=== PATIENT | female | born 1935 | race Caucasian/White ===

== ENCOUNTER → 2017-04-19 | Outpatient (CLI) | payer MEDICARE, BC ==
[~2017-04-19] MED LIST: SODIUM CHLORIDE 0.9% 250 ML in EMPTY BAG 1 BAG IV PRN; SODIUM CHLORIDE 0.9% 500 ML in EMPTY BAG 1 BAG IV PRN; ZOLEDRONIC ACID 5 MG in SODIUM CHLORIDE 0.9% 100 ML IV ONE
[2017-04-19 09:23] VITALS: BP 120/67; PULSE 80; RESP 20; TEMP 98.8
== END | disposition home or self-care (01) ==
LOC: PROCWHC3 08:45
PROVIDERS: ATTEND Family Medicine
DX: M81.0 Age-related osteoporosis without current pathological fracture (principal)
CPT/HCPCS: 96365; J3489

== ENCOUNTER 2017-04-25 21:30 | Inpatient (IN) | payer MEDICARE, BC ==
[2017-04-25] MEDS ORDERED: SODIUM CHLORIDE 0.9% 1,000 ML IV STA (22:13)
[2017-04-25] MEDS ORDERED: ACETAMINOPHEN TAB 500 MG TAB PO STA (22:13)
[2017-04-25] MEDS ORDERED: SODIUM CHLORIDE 0.9% 500 ML IV STA ×2 (22:13→22:58)
[2017-04-25 22:27] LABS: Basophils % (A) 0 %; CH 32.1; CHCM 34.9; Eosinophils # (A) 0.1 k/uL (0-0.7); Eosinophils % (A) 1 %; HCT 43.4 % (34.0-46.0); HDW 2.74; Luc # (Auto) 0.02; Luc % (Auto) 0; Lymphocytes # (A) 0.6 k/uL (1.0-4.8); Lymphocytes % (A) 7 %; MCH 31.8 pg (25.0-35.0); MCHC 34.5 g/dL (31.0-37.0); MCV 92.3 fL (80.0-100.0); Mean Platelet Volume 6.5; Monocytes # (A) 0.2 k/uL (0-1.0); Monocytes % (A) 2 %; Neutrophils # (A) 7.8 k/uL (1.3-7.7); Neutrophils % (A) 89 %; RDW 12.8 % (11.5-15.5); WBC 8.7 k/uL (3.8-10.6); WBC (Perox) 9.04
[2017-04-25 22:35] LABS: Calcium 11.1 mg/dL (8.4-10.2); Potassium 4.6 mmol/L (3.5-5.1); Total Bilirubin 0.8 mg/dL (0.2-1.3); Total Protein 7.1 g/dL (6.3-8.2)
[2017-04-25 22:40] LABS: VBG PH 7.35 (7.31-7.41)
--- NOTE | 2017-04-25 23:09 | XR ---
EXAM: XR Chest, 2 Views. CLINICAL HISTORY: Reason: Pneumonia TECHNIQUE: Frontal and lateral views of the chest. COMPARISON: 11/12/15 FINDINGS: Lungs: Unremarkable. No consolidation. Pleural spaces: Unremarkable. No pneumothorax. Heart: Unremarkable. No cardiomegaly. Mediastinum: Unremarkable. Bones: Unremarkable. No acute fracture. IMPRESSION: No acute findings in the chest
--- NOTE | 2017-04-25 23:11 | XR ---
EXAM: XR Left Hip With Pelvis When Performed, 2 or 3 Views. CLINICAL HISTORY: Reason: Pain TECHNIQUE: Two or three views of the left hip, with pelvis when performed. COMPARISON: No relevant prior studies available. FINDINGS: Bones: Unremarkable. No acute fracture. Joints: Unremarkable. No dislocation. Soft tissues: Unremarkable. IMPRESSION: No acute radiographic findings in the left hip. If there is clinical concern for radiographically occult fracture, this can be further evaluated with MRI.
[2017-04-25 23:32] LABS: Appearance,Urine Cloudy (Clear); Bilirubin,Urine Negative (Negative); Glucose,Urine (UA) 1+ (Negative); Ketones,Urine Trace (Negative); Leukocyte Esterase,Urine Negative (Negative); Mucus,Urine Rare /hpf; Nitrite,Urine Negative (Negative); Particle Count 10607; Protein,Urine 1+ (Negative); RBC,Urine 4 /hpf (0-5); Specific Gravity,Urine 1.011 (1.001-1.035); Squamous Epithelial Cell,Urine 1 /hpf (0-4); UA Billing (MACRO vs. MICRO) MICRO; Urobilinogen,Urine <2.0 mg/dL (<2.0); WBC,Urine 28 /hpf (0-5)
[2017-04-26] MEDS ORDERED: ONDANSETRON 4 MG/2 ML VIAL IVP PRN (00:05)
[2017-04-26] MEDS ORDERED: ACETAMINOPHEN TAB 325 MG TAB PO PRN (00:05)
[2017-04-26] MEDS ORDERED: IBUPROFEN 400 MG TAB PO PRN (00:05)
[2017-04-26] MEDS ORDERED: NALOXONE 0.4 MG/ML 1 ML VIAL IV PRN (00:05)
--- NOTE | 2017-04-26 00:05 | ED ---
Fever HPI - General Chief Complaint: Fever Stated Complaint: Nausea Time Seen by Provider: 04/25/17 22:03 Source: patient Mode of arrival: wheelchair Limitations: no limitations - History of Present Illness Initial Comments: All of a sudden she was not feeling well she called her daughter daughternoticed mom was sweating profusely and now she had high fever, they noticed that she had she was shaking and a she had right worse area she denies any headache no sore throat no chest pain no cough no abdominal pain no frequency urgency dysuria no symptoms of TIA or CVA - Related Data Home Medications Medication Instructions Recorded Confirmed Antiarthritic Combination No.2 900 mg PO DAILY 04/03/15 04/16/16 [Glucosamine-Chondroitin] Aspirin 81 mg PO DAILY 04/03/15 04/19/17 Atorvastatin [Lipitor] 40 mg PO DAILY 04/03/15 04/19/17 Calcium Carbonate/Vitamin D3 1 each PO BID 04/03/15 04/19/17 [Calcium 600 + Vit D Tablet] Gabapentin [Neurontin] 100 mg PO QID 04/03/15 04/19/17 Levothyroxine Sodium [Synthroid] 100 mcg PO DAILY 04/03/15 04/19/17 Lisinopril-Hctz 20-12.5 mg 20 mg PO DAILY 04/03/15 04/19/17 [Zestoretic 20-12.5] Metoprolol Succinate [Toprol XL] 25 mg PO BID 04/03/15 04/19/17 Multivitamin 1 tab PO DAILY 04/03/15 04/19/17 Semprex 1 tab PO BID 04/03/15 04/19/17 metFORMIN HCL [Glucophage] 500 mg PO DAILY 04/03/15 04/19/17 Glucosam/Brian-Msm1/C/Richie/Bosw 1 each PO BID 04/19/17 04/19/17 [Glucosamine-Chondroitin Tablet] Lactobacillus Acidophilus 1 each PO DAILY 04/19/17 04/19/17 [Acidophilus] Allergies Allergy/AdvReac Type Severity Reaction Status Date / Time codeine Allergy Unknown Verified 04/25/17 21:41 Review of Systems ROS Statement: Those systems with pertinent positive or pertinent negative responses have been documented in the HPI. ROS Other: All systems not noted in ROS Statement are negative. Past Medical History Past Medical History: Coronary Artery Disease (CAD), Diabetes Mellitus, Hyperlipidemia, Hypertension, Myocardial Infarction ([place]), Osteoarthritis (OA), Thyroid Disorder Additional Past Medical History / Comment(s): heart stent 01/04/13 head injur jan 01 2015 was inpt in trauma center Last Myocardial Infarction Date:: 01 01 15 History of Any Multi-Drug Resistant Organisms: None Reported Past Surgical History: Heart Catheterization With Stent, Tonsillectomy, Tubal Ligation Additional Past Surgical History / Comment(s): cataracts Date of Last Stent Placement:: 01/04/13 Past Psychological History: No Psychological Hx Reported Smoking Status: Never smoker Past Alcohol Use History: None Reported Past Drug Use History: None Reported - Past Family History Daughter(s) Family Medical History: Cancer Additional Family Medical History / Comment(s): breast cancer General Exam - General Exam Comments Initial Comments: General: The patient is awake and alert, is distressed she is profusely diaphoretic and looks dehydrated Skin: Skin is warm and dry and no rashes or lesions are noted. Eye: Pupils are equal, round and reactive to light, extra-ocular movements are intact; there is normal conjunctiva bilaterally. Ears, nose, mouth and throat: There are moist mucous membranes and no oral lesions. Neck: The neck is supple, there is no tenderness, no signs of meningeal irritation Cardiovascular: There is a regular rate and rhythm. No murmur, rub or gallop is appreciated. Respiratory: To auscultation bilateral, no wheezing no rhonchi no distress respiratory romero noticed Gastrointestinal: Soft, non-distended, non-tender abdomen without masses or organomegaly noted. There is no rebound or guarding present. Bowel sounds are unremarkable. Back: There is no tenderness to palpation in the midline. There is no obvious deformity. Musculoskeletal: Normal ROM, no tenderness, There is no pedal edema. There is no calf tenderness or swelling. No cords were appreciated. Neurological: CN II-XII intact, Cranial nerves III through XII are intact. There are no obvious motor or sensory deficits. Coordination appears grossly intact. Speech is normal. Psychiatric: Cooperative, appropriate mood & affect, normal judgment. Limitations: no limitations Course Vital Signs 04/25/17 04/25/17 04/25/17 21:37 21:56 23:05 Temperature 102.1 F H 98.2 F Pulse Rate 104 H 80 75 Respiratory 24 18 18 Rate Blood Pressure 147/77 127/55 135/60 O2 Sat by Pulse 97 96 97 Oximetry 04/25/17 04/25/17 23:33 23:51 Temperature 98.4 F 98.1 F Pulse Rate 70 62 Respiratory 16 16 Rate Blood Pressure 113/56 113/56 O2 Sat by Pulse 96 99 Oximetry Medical Decision Making - Lab Data Result diagrams: 04/25/17 22:00 04/25/17 22:00 Lab Results 04/25/17 04/25/17 04/25/17 Range/Units 22:00 22:00 22:00 WBC 8.7 (3.8-10.6) k/uL RBC 4.70 (3.80-5.40) m/uL Hgb 15.0 (11.4-16.0) gm/dL Hct 43.4 (34.0-46.0) % MCV 92.3 (80.0-100.0) fL MCH 31.8 (25.0-35.0) pg MCHC 34.5 (31.0-37.0) g/dL RDW 12.8 (11.5-15.5) % Plt Count 232 (150-450) k/uL Neutrophils % 89 % Lymphocytes % 7 % Monocytes % 2 % Eosinophils % 1 % Basophils % 0 % Neutrophils # 7.8 H (1.3-7.7) k/uL Lymphocytes # 0.6 L (1.0-4.8) k/uL Monocytes # 0.2 (0-1.0) k/uL Eosinophils # 0.1 (0-0.7) k/uL Basophils # 0.0 (0-0.2) k/uL VBG pH (7.31-7.41) VBG pCO2 (37-51) mmHg VBG HCO3 (24-28) mmol/L Sodium 144 (137-145) mmol/L Potassium 4.6 (3.5-5.1) mmol/L Chloride 104 (98-107) mmol/L Carbon Dioxide 24 (22-30) mmol/L Anion Gap 16 mmol/L BUN 20 H (7-17) mg/dL Creatinine 1.40 H (0.52-1.04) mg/dL Est GFR (MDRD) Af Amer 44 (>60 ml/min/1.73 sqM) Est GFR (MDRD) Non-Af 36 (>60 ml/min/1.73 sqM) Glucose 157 H (74-99) mg/dL Plasma Lactic Acid Niranjan 3.7 H* (0.7-2.0) mmol/L Calcium 11.1 H (8.4-10.2) mg/dL Total Bilirubin 0.8 (0.2-1.3) mg/dL AST 62 H (14-36) U/L ALT 55 H (9-52) U/L Alkaline Phosphatase 112 (38-126) U/L Total Protein 7.1 (6.3-8.2) g/dL Albumin 4.5 (3.5-5.0) g/dL Urine Color Urine Appearance (Clear) Urine pH (5.0-8.0) Ur Specific Motley (1.001-1.035) Urine Protein (Negative) Urine Glucose (UA) (Negative) Urine Ketones (Negative) Urine Blood (Negative) Urine Nitrite (Negative) Urine Bilirubin (Negative) Urine Urobilinogen (<2.0) mg/dL Ur Leukocyte Esterase (Negative) Urine RBC (0-5) /hpf Urine WBC (0-5) /hpf Urine WBC Clumps (None) /hpf Ur Squamous Epith Cells (0-4) /hpf Urine Mucus (None) /hpf 04/25/17 04/25/17 Range/Units 22:30 23:00 WBC (3.8-10.6) k/uL RBC (3.80-5.40) m/uL Hgb (11.4-16.0) gm/dL Hct (34.0-46.0) % MCV (80.0-100.0) fL MCH (25.0-35.0) pg MCHC (31.0-37.0) g/dL RDW (11.5-15.5) % Plt Count (150-450) k/uL Neutrophils % % Lymphocytes % % Monocytes % % Eosinophils % % Basophils % % Neutrophils # (1.3-7.7) k/uL Lymphocytes # (1.0-4.8) k/uL Monocytes # (0-1.0) k/uL Eosinophils # (0-0.7) k/uL Basophils # (0-0.2) k/uL VBG pH 7.35 (7.31-7.41) VBG pCO2 47 (37-51) mmHg VBG HCO3 25 (24-28) mmol/L Sodium (137-145) mmol/L Potassium (3.5-5.1) mmol/L Chloride (98-107) mmol/L Carbon Dioxide (22-30) mmol/L Anion Gap mmol/L BUN (7-17) mg/dL Creatinine (0.52-1.04) mg/dL Est GFR (MDRD) Af Amer (>60 ml/min/1.73 sqM) Est GFR (MDRD) Non-Af (>60 ml/min/1.73 sqM) Glucose (74-99) mg/dL Plasma Lactic Acid Niranjan (0.7-2.0) mmol/L Calcium (8.4-10.2) mg/dL Total Bilirubin (0.2-1.3) mg/dL AST (14-36) U/L ALT (9-52) U/L Alkaline Phosphatase (38-126) U/L Total Protein (6.3-8.2) g/dL Albumin (3.5-5.0) g/dL Urine Color Yellow Urine Appearance Cloudy H (Clear) Urine pH 6.0 (5.0-8.0) Ur Specific Motley 1.011 (1.001-1.035) Urine Protein 1+ H (Negative) Urine Glucose (UA) 1+ H (Negative) Urine Ketones Trace H (Negative) Urine Blood Negative (Negative) Urine Nitrite Negative (Negative) Urine Bilirubin Negative (Negative) Urine Urobilinogen <2.0 (<2.0) mg/dL Ur Leukocyte Esterase Negative (Negative) Urine RBC 4 (0-5) /hpf Urine WBC 28 H (0-5) /hpf Urine WBC Clumps Few H (None) /hpf Ur Squamous Epith Cells 1 (0-4) /hpf Urine Mucus Rare H (None) /hpf Critical Care Time Total Critical Care Time: 30 Critical Care Time: And very diaphoretic, she was very dehydrated, she can talk her tongue was stuck in her mouth and she had a high fever she was given a fluid bolus in the Zosyn, labs sent though didn't look as bad as she did CBC is normal, BS metabolic panel is normal, creatinine is 1.4 date is 3.4 and urinalysis positive this is probably the most common cause of her sepsis since her chest x- ray is normal considering a lactate of 3.4 and clinical picture which looked worse than her labs and imaging she be admitted for IV antibiotics and cultures come back she be admitted under Dr. Sue service Disposition Clinical Impression: Sepsis, Fever, Cystitis Disposition: ADMITTED IP TO THIS HOSP Condition: Good Referrals: Juan Farrell MD [Primary Care Provider] - 1-2 days
[2017-04-26 07:24] LABS: Glucose,Whole Blood 118 mg/dL (75-99)
[2017-04-26] MEDS: INSULIN LISPRO (humaLOG) 300 UNIT/3 ML VIAL SQ SCH ×4 (07:36→20:47)
[2017-04-26] MEDS ORDERED: PIPERACILLIN-TAZOBACTAM 3.375 GM in DEXTROSE/WATER 1 50ML.BAG IVPB SCH (08:00)
[2017-04-26] MEDS: METOPROLOL TARTRATE 25 MG TAB PO SCH ×2 (08:02→20:40)
[2017-04-26] MEDS: LACTOBACILLUS ACIDOPH & BULGAR 1 EACH PACKET PO SCH (08:02)
[2017-04-26] MEDS: ATORVASTATIN 40 MG TAB PO SCH (08:02)
[2017-04-26] MEDS: MULTIVITAMINS, THERA 1 EACH TAB PO SCH (08:02)
[2017-04-26] MEDS: GABAPENTIN 100 MG CAP PO SCH ×4 (08:02→21:44)
[2017-04-26] MEDS: CALCIUM CARB-VIT D 500MG-200UN 1 EACH TAB PO SCH ×2 (08:03→20:40)
[2017-04-26] MEDS ORDERED: LEVOTHYROXINE 100 MCG TAB PO SCH (09:00)
[2017-04-26] MEDS ORDERED: LISINOPRIL-HCTZ 20-12.5 MG 1 EACH TAB PO SCH (09:00)
[2017-04-26] MEDS ORDERED: NON-FORMULARY DRUG (Glucosam/Chon-Msm1/C/Mang/Bosw [Glucosamine-Chondroitin Tablet] 1 EACH PO SCH (09:00)
[2017-04-26] MEDS ORDERED: ANTIARTHRITIC COMBINATION NO 2 900 MG PO SCH (09:00)
[2017-04-26] MEDS ORDERED: metFORMIN 500 MG TAB PO SCH (09:00)
[2017-04-26] MEDS: ASPIRIN 81 MG CHEW PO SCH (09:30)
[2017-04-26 11:50] LABS: Glucose,Whole Blood 116 mg/dL (75-99)
[2017-04-26 16:57] LABS: Glucose,Whole Blood 100 mg/dL (75-99)
[2017-04-26 20:49] LABS: Glucose,Whole Blood 129 mg/dL (75-99)
[2017-04-27] MEDS: LEVOTHYROXINE 100 MCG TAB PO SCH (06:41)
[2017-04-27 06:55] LABS: Glucose,Whole Blood 93 mg/dL (75-99)
[2017-04-27] MEDS: INSULIN LISPRO (humaLOG) 300 UNIT/3 ML VIAL SQ SCH ×4 (07:03→21:25)
[2017-04-27] MEDS: LACTOBACILLUS ACIDOPH & BULGAR 1 EACH PACKET PO SCH (07:39)
[2017-04-27] MEDS: ASPIRIN 81 MG CHEW PO SCH (07:40)
[2017-04-27] MEDS: CALCIUM CARB-VIT D 500MG-200UN 1 EACH TAB PO SCH ×2 (07:40→21:25)
[2017-04-27] MEDS: MULTIVITAMINS, THERA 1 EACH TAB PO SCH (07:40)
[2017-04-27] MEDS: ATORVASTATIN 40 MG TAB PO SCH (07:40)
[2017-04-27] MEDS: METOPROLOL TARTRATE 25 MG TAB PO SCH ×2 (07:40→21:25)
[2017-04-27] MEDS: GABAPENTIN 100 MG CAP PO SCH ×4 (07:40→21:25)
--- NOTE | 2017-04-27 08:15 | HP ---
DATE OF ADMISSION: Patient is an 81-year-old female who was brought in here because of the fever. Patient was having chills at home and found to have high-grade fever here. Patient denied any myalgias. The patient denies any cough, runny nose, dysuria, frequency, urgency. Patient although urine appeared to be abnormal and urine cultures are so far negative. Blood cultures were obtain. Chest x-ray did not show any abnormality. Patient had lactic acidosis as well which improved with IV fluids. Patient's urine showed WBC of 28, WBC clumps, nitrate negative. Home medications include: Glucosamine chondroitin sulfate, aspirin, atorvastatin, calcium, vitamin D, gabapentin, levothyroxine, lisinopril, hydrochlorothiazide, metoprolol, ( ), metformin, lactobacillus acidophilus. ROS: All other systems were reviewed and were negative. ALLERGIES: ALLERGIC TO CODEINE. PAST MEDICAL HISTORY: Coronary artery disease, diabetes mellitus type 2, hyperlipidemia, hypertension, myocardial infarction in the past, hypothyroidism. Cardiac catheterization and stent placement in the past, tonsillectomy, tubal ligation surgery. SOCIAL HISTORY: Denied any smoking, alcohol abuse or any drug abuse. FAMILY HISTORY: Daughter with breast cancer. PHYSICAL EXAMINATION: Temperature 98.5, 24-hour T-max is 102.1, pulse of 104, pulse presently 72, respiratory rate of 16, blood pressure is 112/54, saturating at 98% on room air. GENERAL: The patient is alert and oriented x3, not in any acute distress. Well developed, well nourished. HEENT: Pupils are round and equally reacting to light. EOMI. No scleral icterus. No conjunctival pallor. Normocephalic, atraumatic. No pharyngeal erythema. No thyromegaly. CARDIOVASCULAR: S1 and S2 present. No murmurs, rubs, or gallops. PULMONARY: Chest is clear to auscultation, no wheezing or crackles. ABDOMEN: Soft, nontender, nondistended, normoactive bowel sounds. No palpable organomegaly. MUSCULOSKELETAL: No joint swelling or deformity. EXTREMITIES: No cyanosis, clubbing, or pedal edema. NEUROLOGICAL: Gross neurological examination did not reveal any focal deficits. SKIN: No rashes. LABORATORY DATA: CBC and CMP abnormal for normal WBC count and creatinine is 1.4, BUN of 20. I do not have her baseline creatinine. ASSESSMENT AND PLAN: 1. Fever, source of sepsis is not very clear. Urinary tract infection cannot be ruled out. Patient will be continued on Rocephin. Will follow with the urine cultures tomorrow. Patient probably will be discharged tomorrow. 2. Lactic acidosis; can be related to sepsis or maybe even just secondary to metformin she is on. Metformin will be held. Patient will be started on IV fluids. 3. Acute versus chronic kidney disease. I am not sure whether patient has CKD or not. BUN and creatinine is consistent with CKD and may have stage II or III. Diabetic nephropathy and stage II or III chronic kidney disease. Anyways the patient will be started on IV fluids. PJ inhibitor will be held at this time until I make sure it is not acute renal failure. Patient is actually on hypotensive side. 4. Coronary artery disease. 5. Hyperlipidemia. 6. Hypertension. We will hold off on lisinopril hydrochlorothiazide. 7. Hypothyroidism for which home medications will be continued. 8. Diabetic neuropathy. MTDD
[2017-04-27 08:58] LABS: Anion Gap 8 mmol/L; Blood Urea Nitrogen 13 mg/dL (7-17); Calcium 9.7 mg/dL (8.4-10.2); Carbon Dioxide 26 mmol/L (22-30); Chloride 108 mmol/L (98-107); Glucose 106 mg/dL (74-99); Non-African American GFR(MDRD) 59 (>60 ml/min/1.73 sqM); Potassium 3.7 mmol/L (3.5-5.1); Sodium 142 mmol/L (137-145)
[2017-04-27 09:35] LABS: CH 31.8; CHCM 33.6; HCT 38.6 % (34.0-46.0); HDW 2.65; HGB 12.8 gm/dL (11.4-16.0); MCH 31.6 pg (25.0-35.0); MCHC 33.2 g/dL (31.0-37.0); MCV 95.2 fL (80.0-100.0); Mean Platelet Volume 6.9; RBC 4.06 m/uL (3.80-5.40); RDW 13.2 % (11.5-15.5); WBC 8.2 k/uL (3.8-10.6)
[2017-04-27 11:49] LABS: Glucose,Whole Blood 116 mg/dL (75-99)
[2017-04-27 16:57] LABS: Glucose,Whole Blood 120 mg/dL (75-99)
[2017-04-27] MEDS: AMPICILLIN-SULBACTAM 3 GM in SODIUM CHLORIDE 0.9% 100 ML IVPB SCH ×2 (17:03→23:46)
--- NOTE | 2017-04-27 20:37 | PN ---
This 81-year-old was admitted with sepsis. Patient is found to be bacteremic with Gram-positive cocci in chains. To cover enterococcus, I will order Unasyn, as most probable source of infection is urinary tract infection. Patient is feeling much better; wanted to go home, but because of the positive bacteremia, will repeat blood cultures today and tomorrow as well. REVIEW OF SYSTEMS: CARDIOVASCULAR: No chest pain, no orthopnea, no PND, no palpitations. PULMONARY: Denied any shortness of breath. No cough or hemoptysis. GASTROINTESTINAL: No diarrhea, nausea or vomiting. No abdominal pain. Normoactive bowel sounds. NEUROLOGIC: No headaches, no weakness, no numbness. Medications were reviewed. PHYSICAL EXAMINATION: VITAL SIGNS: Temperature 97.5, pulse of 72, respiratory rate 16, blood pressure 140/70. Saturating at 96% on room air. GENERAL: The patient is alert and oriented x3, not in any acute distress. Well developed, well nourished. HEENT: Pupils are round and equally reacting to light. EOMI. No scleral icterus. No conjunctival pallor. Normocephalic, atraumatic. No pharyngeal erythema. No thyromegaly. CARDIOVASCULAR: S1 and S2 present. No murmurs, rubs, or gallops. PULMONARY: Chest is clear to auscultation, no wheezing or crackles. ABDOMEN: Soft, nontender, nondistended, normoactive bowel sounds. No palpable organomegaly. MUSCULOSKELETAL: No joint swelling or deformity. EXTREMITIES: No cyanosis, clubbing, or pedal edema. NEUROLOGICAL: Gross neurological examination did not reveal any focal deficits. SKIN: No rashes. LABORATORY DATA: Basic metabolic profile and CBC are essentially within normal limits. ASSESSMENT AND PLAN: 1. Fever and bacteremia with Gram-positive cocci in chains. Patient will be continued on Unasyn. Repeat labs tomorrow. 2. Lactic acidosis, either secondary to metformin or sepsis or bacteremia. 3. Acute renal failure, improved with IV fluids and discontinuation of PJ inhibitors and hydrochlorothiazide. 4. Coronary artery disease. 5. Hyperlipidemia. 6. Hypertension. 7. Hypothyroidism. 8. Diabetic neuropathy.
[2017-04-27 20:43] LABS: Glucose,Whole Blood 107 mg/dL (75-99)
[2017-04-28] MEDS: AMPICILLIN-SULBACTAM 3 GM in SODIUM CHLORIDE 0.9% 100 ML IVPB SCH ×2 (06:12→12:27)
[2017-04-28] MEDS: LEVOTHYROXINE 100 MCG TAB PO SCH (06:26)
[2017-04-28 07:37] LABS: Glucose,Whole Blood 95 mg/dL (75-99)
[2017-04-28 08:11] VITALS: BP 141/76; PULSE 66; TEMP 97.4
[2017-04-28] MEDS: INSULIN LISPRO (humaLOG) 300 UNIT/3 ML VIAL SQ SCH ×2 (08:15→12:23)
[2017-04-28] MEDS: MULTIVITAMINS, THERA 1 EACH TAB PO SCH (08:55)
[2017-04-28] MEDS: ASPIRIN 81 MG CHEW PO SCH (08:55)
[2017-04-28] MEDS: LACTOBACILLUS ACIDOPH & BULGAR 1 EACH PACKET PO SCH (08:55)
[2017-04-28] MEDS: ATORVASTATIN 40 MG TAB PO SCH (08:55)
[2017-04-28] MEDS: GABAPENTIN 100 MG CAP PO SCH ×2 (08:55→12:27)
[2017-04-28] MEDS: CALCIUM CARB-VIT D 500MG-200UN 1 EACH TAB PO SCH (08:55)
[2017-04-28] MEDS: METOPROLOL TARTRATE 25 MG TAB PO SCH (08:55)
[2017-04-28 09:55] VITALS: RESP 18
[2017-04-28 11:57] LABS: Glucose,Whole Blood 116 mg/dL (75-99)
--- NOTE | 2017-04-30 09:23 | DS ---
DATE OF ADMISSION: 04/26/2017 DATE OF DISCHARGE: 04/28/2017 FINAL DIAGNOSES: 1. Probably acute urinary tract infection with sepsis, present on admission. 2. Lactic acidosis from sepsis. 3. Acute renal failure, probably prerenal, present on admission. 4. Coronary artery disease. 5. Hyperlipidemia. 6. Essential hypertension. 7. Hypothyroidism. HOSPITAL COURSE: This patient presented with UTI with possible sepsis, growing nonhemolytic strep. Patient was febrile 102.1 on presentation and remained afebrile since then, doing really well, tolerating a diet. Up and about, Very keen to go home. Patient's white count was normal. Patient is up and about. Really felt himself. On exam, lungs are clear. CARDIOVASCULAR: First and second sounds normal. DISCHARGE MEDICATIONS: Medication glucosamine/chondroitin 900 mg p.o. daily, Aspirin 81 mg p.o. daily, Lipitor 40 mg p.o. daily, calcium and vitamin D3 1 tablet p.o. b.i.d., Neurontin 100 mg p.o. q.i.d., Synthroid 100 mcg p.o. daily, ( ) 1 tablet p.o. b.i.d., glucosamine chondroitin 1 tablet p.o. b.i.d., ( ) 1 tablet p.o. daily, Lopressor 25 mg p.o. b.i.d., Multivitamin 1 tablet p.o. daily, Augmentin 875 one tablet p.o. q.12 14 tablets, Lopressor 25 mg p.o. b.i.d. Follow up with Dr. Farrell on 05/06/17. CBC, BMP in one week.
== END 2017-04-28 13:39 | disposition home or self-care (01) | DRG 872 ==
LOC: EC 21:30 → 4MS4W 04-26 00:07
PROVIDERS: ADMIT Hospitalist; ATTEND Hospitalist
DX: A40.8 Other streptococcal sepsis (principal); N17.9 Acute kidney failure, unspecified; E87.2 Acidosis; E11.21 Type 2 diabetes mellitus with diabetic nephropathy; N39.0 Urinary tract infection, site not specified; E11.40 Type 2 diabetes mellitus with diabetic neuropathy, unspecified; E03.9 Hypothyroidism, unspecified; E11.22 Type 2 diabetes mellitus with diabetic chronic kidney disease; E78.5 Hyperlipidemia, unspecified; I12.9 Hypertensive chronic kidney disease with stage 1 through stage 4 chronic kidney disease, or unspecified chronic kidney disease; I25.10 Atherosclerotic heart disease of native coronary artery without angina pectoris; I25.2 Old myocardial infarction; N18.2 Chronic kidney disease, stage 2 (mild); Z95.5 Presence of coronary angioplasty implant and graft; Z79.82 Long term (current) use of aspirin; Z79.899 Other long term (current) drug therapy; Z88.5 Allergy status to narcotic agent
CPT/HCPCS: 36415; 71020; 73502; 80048; 80053; 81001; 82803; 83036; 83605; 85025; 85027; 87040; 87077; 87086; 87186; 94760; 96361; 96365; 96366; 99285

== ENCOUNTER → 2017-06-28 | Outpatient (CLI) | payer MEDICARE, BC ==
--- NOTE | 2017-06-29 10:05 | MM ---
Reason for exam: screening (asymptomatic). Last mammogram was performed 7 years and 3 months ago. History: Patient is postmenopausal. Physical Findings: A clinical breast exam by your physician is recommended on an annual basis and results should be correlated with mammographic findings. MG 3D Screening Mammo W/Cad Bilateral CC and MLO view(s) were taken. Prior study comparison: April 03, 2010, bilateral digital screening mammogram. There are scattered fibroglandular densities. Finding: There are typically benign vascular, round, linear calcifications in both breasts. Previous mammotome biopsy in the left breast. There is no discrete abnormality. ASSESSMENT: Benign, BI-RAD 2 RECOMMENDATION: Routine screening mammogram of both breasts in 1 year.
== END | disposition home or self-care (01) ==
LOC: RADMAMWWP 10:38
PROVIDERS: ATTEND Family Medicine
DX: Z12.31 Encounter for screening mammogram for malignant neoplasm of breast (principal)
CPT/HCPCS: 77063; G0202

== ENCOUNTER 2018-01-15 18:22 | Observation (INO) | payer MEDICARE, BC ==
[2018-01-15] MEDS ORDERED: MORPHINE SULFATE 4 MG/ML SYRINGE IVP STA (19:01)
[2018-01-15] MEDS ORDERED: SODIUM CHLORIDE 0.9% 1,000 ML IV STA (19:01)
[2018-01-15] MEDS: MORPHINE SULFATE 4 MG/ML SYRINGE IV STA ×2 (19:10→20:02)
[2018-01-15 19:28] LABS: Basophils # (A) 0.1 k/uL (0-0.2); Basophils % (A) 0 %; Eosinophils # (A) 0.2 k/uL (0-0.7); Eosinophils % (A) 1 %; HGB 14.1 gm/dL (11.4-16.0); Lymphocytes # (A) 1.6 k/uL (1.0-4.8); Lymphocytes % (A) 11 %; MCH 31.3 pg (25.0-35.0); MCHC 32.8 g/dL (31.0-37.0); MCV 95.4 fL (80.0-100.0); Mean Platelet Volume 6.7; Monocytes # (A) 0.9 k/uL (0-1.0); Monocytes % (A) 6 %; Neutrophils % (A) 81 %; Platelet Count 257 k/uL (150-450); RBC 4.51 m/uL (3.80-5.40); RDW 12.6 % (11.5-15.5); WBC 14.8 k/uL (3.8-10.6)
--- NOTE | 2018-01-15 19:38 | ED ---
Chest Pain HPI - General Chief Complaint: Chest Pain Stated Complaint: chest pain radiating to back Time Seen by Provider: 01/15/18 18:56 Source: patient Mode of arrival: wheelchair Limitations: no limitations - History of Present Illness Initial Comments: 82 years old female presented with the chest pain she does have a history of heart disease she had a stent in place in 2012 she has been seeing a finisher map and chart every 3 months, chest pain started 3 PM today him and now she is complaining about pain in the epigastric area denies any nausea no vomiting no diaphoresis no shortness of breath no pleuritic chest pain. No headaches no neck stiffness no symptoms of TIA or CVA - Related Data Home Medications Medication Instructions Recorded Confirmed Aspirin 81 mg PO MOWEFR 04/03/15 01/15/18 Atorvastatin [Lipitor] 40 mg PO DAILY 04/03/15 01/15/18 Calcium Carbonate/Vitamin D3 1 tab PO BID 04/03/15 01/15/18 [Calcium 600-Vit D3 400 Tablet] Gabapentin [Neurontin] 100 mg PO BID@0800,1500 04/03/15 01/15/18 Levothyroxine Sodium [Synthroid] 100 mcg PO MOTUWETHFRSA 04/03/15 01/15/18 Semprex 1 tab PO BID 04/03/15 01/15/18 Lactobacillus Acidophilus 1 tab PO DAILY 04/19/17 01/15/18 [Acidophilus] Multivitamins, Thera [Multivitamin 1 tab PO DAILY 04/26/17 01/15/18 (formulary)] Cyanocobalamin (Vitamin B-12) 1,000 mcg PO DAILY 01/15/18 01/15/18 [Vitamin B-12] Gabapentin [Neurontin] 200 mg PO HS 01/15/18 01/15/18 Glucosam/Brian-Msm1/C/Richie/Bosw 1 tab PO BID 01/15/18 01/15/18 [Glucosamine-Chondroitin Tablet] Lisinopril [Zestril] 20 mg PO DAILY 01/15/18 01/15/18 Naproxen Sodium [Aleve] 220 mg PO DAILY 01/15/18 01/15/18 metFORMIN HCL ER [Glucophage Xr] 500 mg PO PC-SUPPER 01/15/18 01/15/18 Previous Rx's Medication Instructions Recorded Metoprolol Tartrate [Lopressor] 25 mg PO BID tab 04/28/17 Allergies Allergy/AdvReac Type Severity Reaction Status Date / Time codeine Allergy Unknown Verified 01/15/18 19:03 Review of Systems ROS Statement: Those systems with pertinent positive or pertinent negative responses have been documented in the HPI. ROS Other: All systems not noted in ROS Statement are negative. EKG Findings - EKG Comments: EKG Findings:: EKG is normal sinus rhythm ventricular rate is 62 GA interval is 158 QRS duration is 84 QT/QTc is 406/415 review of this EKG does not reveal any ST elevation noticed very mild ST depression in lead 2 and V6 Past Medical History Past Medical History: Coronary Artery Disease (CAD), Diabetes Mellitus, Hyperlipidemia, Hypertension, Myocardial Infarction ([place]), Osteoarthritis (OA), Thyroid Disorder Additional Past Medical History / Comment(s): heart stent 01/04/13 head injur jan 01 2015 was inpt in trauma center in [place] Last Myocardial Infarction Date:: 01-01-15 History of Any Multi-Drug Resistant Organisms: None Reported Past Surgical History: Bowel Resection, Heart Catheterization With Stent, Tonsillectomy, Tubal Ligation Additional Past Surgical History / Comment(s): cataracts Past Anesthesia/Blood Transfusion Reactions: No Reported Reaction Date of Last Stent Placement:: 01/04/13 Past Psychological History: No Psychological Hx Reported Smoking Status: Never smoker Past Alcohol Use History: None Reported Past Drug Use History: None Reported - Past Family History Daughter(s) Family Medical History: Cancer Additional Family Medical History / Comment(s): breast cancer General Exam - General Exam Comments Initial Comments: General: The patient is awake and alert, in severe distress, Skin: Skin is warm and dry and no rashes or lesions are noted. Eye: Pupils are equal, round and reactive to light, extra-ocular movements are intact; there is normal conjunctiva bilaterally. Ears, nose, mouth and throat: There are moist mucous membranes and no oral lesions. Neck: The neck is supple, there is no tenderness or JVD. Cardiovascular: There is a regular rate and rhythm. No murmur, rub or gallop is appreciated. Respiratory: To auscultation bilateral, no wheezing no rhonchi no distress respiratory romero noticed Gastrointestinal: Mildly tender in epigastric area positive bowel sounds no guarding no rebounds Back: There is no tenderness to palpation in the midline. There is no obvious deformity. Musculoskeletal: Normal ROM, no tenderness, There is no pedal edema. There is no calf tenderness or swelling. No cords were appreciated. Neurological: CN II-XII intact, Cranial nerves III through XII are intact. There are no obvious motor or sensory deficits. Coordination appears grossly intact. Speech is normal. Psychiatric: Cooperative, appropriate mood & affect, normal judgment. Limitations: no limitations Course Vital Signs 01/15/18 01/15/18 01/15/18 18:25 19:00 19:29 Temperature 97 F L 98.4 F Pulse Rate 60 62 Pulse Rate [ 68 Bilateral Computer Engineer ] Respiratory 16 18 Rate Blood Pressure 170/71 132/60 O2 Sat by Pulse 99 97 Oximetry 01/15/18 01/15/18 01/15/18 19:45 20:00 21:00 Temperature 98 F Pulse Rate 62 62 82 Pulse Rate [ Bilateral Computer Engineer ] Respiratory 18 20 18 Rate Blood Pressure 134/60 146/67 146/67 O2 Sat by Pulse 97 98 97 Oximetry Critical Care Time Total Critical Care Time: 45 Critical Care Time: She came in with a chest pain on arrival chest pain has subsided she had abdominal pain she was given some morphine without great deal of benefit at 823 pain got worse though second EKG didn't show any changes on repeat the troponin and a she be sent for a CT chest to rule out aortic dissection CT chest is unremarkable for pulmonary embolism or aortic dissection EKG and troponin are still unremarkable with a recurrent heparinize her The hospital for 3 sets of cardiac markers and cardiology consult Disposition Clinical Impression: Chest pain Disposition: ADMITTED IP TO THIS HOSP Condition: Good Referrals: Juan Farrell MD [Primary Care Provider] - 1-2 days
[2018-01-15 19:41] LABS: Prothrombin Time 9.8 sec (9.0-12.0)
[2018-01-15 19:43] LABS: ALT 28 U/L (9-52); AST 29 U/L (14-36); Albumin 3.9 g/dL (3.5-5.0); Alkaline Phosphatase 75 U/L (38-126); Amylase 122 U/L (30-110); Anion Gap 11 mmol/L; Blood Urea Nitrogen 15 mg/dL (7-17); Calcium 9.7 mg/dL (8.4-10.2); Carbon Dioxide 28 mmol/L (22-30); Chloride 102 mmol/L (98-107); Creatine Kinase 116 U/L (30-135); Glucose 151 mg/dL (74-99); Lipase 288 U/L (23-300); Potassium 3.7 mmol/L (3.5-5.1); Sodium 141 mmol/L (137-145); Total Bilirubin 0.4 mg/dL (0.2-1.3); Total Protein 6.4 g/dL (6.3-8.2)
[2018-01-15 19:47] LABS: Partial Thromboplastin Time 22.1 sec (22.0-30.0)
[2018-01-15 19:55] LABS: Troponin I <0.012 ng/mL (0.000-0.034)
[2018-01-15 20:00] LABS: Creatine Kinase MB 3.7 ng/mL (0.0-2.4)
--- NOTE | 2018-01-15 20:06 | XR ---
EXAMINATION TYPE: XR KUB DATE OF EXAM: 01/15/2018 CLINICAL DATA: 82-year-old female with pain, [facility] COMPARISON: 08/07/2011 FINDINGS: Lung bases are clear. No evidence for free intraperitoneal air. No dilated small bowel or air-fluid levels. Scattered air and stool seen throughout the colon extendi ng distally into the rectum. Mild to moderate stool. Splenic artery calcifications and some surgical clips in the mid pelvis. Degenerative changes of the pubic symphysis and right hip and lumbar spine with levoconvex curvature. IMPRESSION: No evidence of bowel obstruction or free intraperitoneal air. Mild to moderate stool. Some surgical c lips in the mid pelvis.
--- NOTE | 2018-01-15 20:07 | XR ---
EXAMINATION TYPE: XR chest 2V DATE OF EXAM: 01/15/2018 COMPARISON: 04/25/2017 HISTORY: 82-year-old female with chest pain TECHNIQUE: PA and lateral views FINDINGS: Heart borderline enlarged. Mild elongation thoracic aorta. Prominent first rib ends are noted. Mild i nterstitial prominence. No consolidation or pleural effusion. IMPRESSION: 1. Borderline heart size. 2. Chronic senescent changes. No acute process seen.
[2018-01-15] MEDS ORDERED: RX INFO: IV CONTRAST WAS GIVEN 1 EACH MISC MISCELLANE PRN (20:21)
[2018-01-15] MEDS ORDERED: HYDROmorphone 2 MG/ML 1 ML SYRINGE IVP STA (20:21)
[2018-01-15] MEDS ORDERED: HYDROmorphone 0.5 MG/0.5 ML SYRINGE IVP STA (20:25)
[2018-01-15 20:36] LABS: C Reactive Protein <5.0 mg/L (<10.0)
--- NOTE | 2018-01-15 21:16 | CT ---
EXAMINATION TYPE: CT chest angio for PE DATE OF EXAM: 01/15/2018 COMPARISON: Radiograph same day HISTORY: 82-year-old female chest and back pain TECHNIQUE: Contiguous axial scanning of the chest performed with IV Contrast, patient injected with 7 0 mL of Omnipaque 350. Delayed images through the kidneys were obtained. Coronal/sagittal reconstruct ions performed. CT DLP: 212.00 mGycm Automated exposure control for dose reduction was used. FINDINGS: The heart is borderline enlarged. No pericardial effusion. Mild coronary vessel calcifications. Aorta normal caliber with conventional arterial vessel branching anatomy. There is some tortuosity of the great vessels. No thoracic lymphadenopathy. Satisfactory opacification of the pulmonary arterial system without evidence for pulmonary embolus. Mild diffuse bronchial wall thickening. Dependent atelectasis is noted. Strandy atelectasis or scarri ng at the lung bases. No consolidation or pleural effusion. Visualized upper abdomen shows no gross abnormality. Bones: Endplate spondylosis upper thoracic spine. No osseous destructive process. IMPRESSION: 1. NO EVIDENCE FOR PULMONARY EMBOLUS. 2. MILD DIFFUSE BRONCHIAL WALL THICKENING COULD REPRESENT BRONCHITIS OR ASTHMA. 3. DEPENDENT ATELECTASIS AND STRANDY BIBASILAR ATELECTASIS OR SCARRING.
[2018-01-15] MEDS ORDERED: NITROGLYCERIN SL TABS 0.4 MG TAB SUBLINGUAL PRN (21:59)
[2018-01-15] MEDS ORDERED: HEPARIN SODIUM,PORCINE 5,000 UNIT/ML 1 ML VIAL IV ONE (21:59)
[2018-01-15] MEDS ORDERED: MORPHINE SULFATE 4 MG/ML SYRINGE IV PRN (21:59)
[2018-01-15] MEDS ORDERED: HEPARIN SOD,PORK IN 0.45% NACL 25,000 UNIT in 0.45% NACL 1 500ML.BAG IV SCH (22:00)
[2018-01-16 01:49] VITALS: BMI 23.3
[2018-01-16 02:36] LABS: Creatine Kinase 78 U/L (30-135)
[2018-01-16 02:49] LABS: Troponin I <0.012 ng/mL (0.000-0.034)
[2018-01-16 04:23] LABS: Cholesterol 103 mg/dL (<200); HDL Cholesterol 81 mg/dL (40-60); LDL Cholesterol,Calculated 17 mg/dL (0-99); Triglycerides 25 mg/dL (<150)
[2018-01-16 06:31] LABS: Glucose,Whole Blood 174 mg/dL (75-99)
[2018-01-16] MEDS ORDERED: metFORMIN 500 MG TAB PO SCH (07:30)
[2018-01-16 07:46] LABS: Creatine Kinase 61 U/L (30-135)
[2018-01-16 07:59] LABS: Creatine Kinase MB 2.4 ng/mL (0.0-2.4); Troponin I <0.012 ng/mL (0.000-0.034)
[2018-01-16] MEDS ORDERED: GABAPENTIN 100 MG CAP PO SCH ×2 (08:00→21:00)
[2018-01-16 08:57] VITALS: RESP 17; TEMP 97.6
[2018-01-16] MEDS ORDERED: CYANOCOBALAMIN 500 MCG TAB PO SCH (09:00)
[2018-01-16] MEDS ORDERED: CALCIUM CARB-VIT D 500MG-200UN 1 EACH TAB PO SCH (09:00)
[2018-01-16] MEDS ORDERED: LACTOBACILLUS ACIDOPH & BULGAR 1 EACH PACKET PO SCH (09:00)
[2018-01-16] MEDS ORDERED: ASPIRIN 325 MG TAB PO SCH (09:00)
[2018-01-16] MEDS ORDERED: NAPROXEN 250 MG TAB PO SCH (09:00)
[2018-01-16] MEDS ORDERED: ATORVASTATIN 40 MG TAB PO SCH (09:00)
[2018-01-16] MEDS ORDERED: NON-FORMULARY DRUG (Glucosam/Chon-Msm1/C/Mang/Bosw [Glucosamine-Chondroitin Tablet] 1 TAB) PO SCH (09:00)
[2018-01-16] MEDS ORDERED: METOPROLOL TARTRATE 25 MG TAB PO SCH (09:00)
[2018-01-16] MEDS ORDERED: LISINOPRIL 20 MG TAB PO SCH (09:00)
[2018-01-16 11:53] LABS: Glucose,Whole Blood 247 mg/dL (75-99)
[2018-01-16] MEDS ORDERED: MULTIVITAMINS, THERA 1 EACH TAB PO SCH (12:00)
[2018-01-16] MEDS ORDERED: DOCUSATE 100 MG CAP PO PRN (12:37)
[2018-01-16] MEDS ORDERED: MORPHINE ORAL SOLN 10 MG/5 ML CUP PO PRN (13:32)
[2018-01-16 13:45] VITALS: BP 119/62; PULSE 85
--- NOTE | 2018-01-16 15:53 | P.HPIM ---
History of Present Illness H&P Date: 01/16/18 Chief Complaint: Chest pain Patient is a 82-year-old female with a known history of coronary artery disease and stent placement, diabetes type 2, hypertension, hyperlipidemia and history of TX and osteoarthritis and hypothyroidism came to ER with the complaints of chest pain. Chest pain is mainly in the lower anterior in the epigastric region felt like a bandlike's sensation around the epigastric area. No nausea vomiting or diarrhea. No recent illnesses. denies any nausea no vomiting no diaphoresis no shortness of breath no pleuritic chest pain. No headaches no neck stiffness no symptoms of TIA or CVA Chest x-ray showed no acute process . EKG showed normal sinus rhythm, ST-T abnormality Walsh Amylase 122 lipase 288 Patient says that chest pain resolved after nitroglycerin in the ER. Currently denied any abdominal pain or chest pain. Review of Systems Constitutional: Patient denies any fever or chills . No generalized weakness or weight loss. Abdomen: Patient denied nausea vomiting and diarrhea and abdominal pain. Cardiovascular: Patient denies any chest pain or short of breath no palpitations. Respiratory: patient denied any cough is from production. No shortness of breath Neurologic: Patient denied any numbness or tingling headache. Musculoskeletal: Patient denies any complaints of joint swelling or deformity. Skin: Negative Psychiatric: Negative Endocrine: No heat or cold intolerance. No recent weight gain. Genitourinary: No dysuria or hematuria. All other 14 point ROS negative except the above Past Medical History Past Medical History: Coronary Artery Disease (CAD), Diabetes Mellitus, Hyperlipidemia, Hypertension, Myocardial Infarction (TX), Osteoarthritis (OA), Thyroid Disorder Additional Past Medical History / Comment(s): heart stent 01/04/13 head injur jan 01 2015 was inpt in trauma center in [place] Last Myocardial Infarction Date:: 01-01-15 History of Any Multi-Drug Resistant Organisms: None Reported Past Surgical History: Bowel Resection, Heart Catheterization With Stent, Tonsillectomy, Tubal Ligation Additional Past Surgical History / Comment(s): cataracts Past Anesthesia/Blood Transfusion Reactions: No Reported Reaction Date of Last Stent Placement:: 01/04/13 Past Psychological History: No Psychological Hx Reported Smoking Status: Never smoker Past Alcohol Use History: None Reported Past Drug Use History: None Reported - Past Family History Daughter(s) Family Medical History: Cancer Additional Family Medical History / Comment(s): breast cancer Medications and Allergies Home Medications Medication Instructions Recorded Confirmed Type Aspirin 81 mg PO MOWEFR 04/03/15 01/15/18 History Atorvastatin [Lipitor] 40 mg PO DAILY 04/03/15 01/15/18 History Calcium Carbonate/Vitamin D3 1 tab PO BID 04/03/15 01/15/18 History [Calcium 600-Vit D3 400 Tablet] Gabapentin [Neurontin] 100 mg PO BID@0800,1500 04/03/15 01/15/18 History Levothyroxine Sodium [Synthroid] 100 mcg PO MOTUWETHFRSA 04/03/15 01/15/18 History Semprex 1 tab PO BID 04/03/15 01/15/18 History Lactobacillus Acidophilus 1 tab PO DAILY 04/19/17 01/15/18 History [Acidophilus] Multivitamins, Thera [Multivitamin 1 tab PO DAILY 04/26/17 01/15/18 History (formulary)] Metoprolol Tartrate [Lopressor] 25 mg PO BID tab 04/28/17 01/15/18 Rx Cyanocobalamin (Vitamin B-12) 1,000 mcg PO DAILY 01/15/18 01/15/18 History [Vitamin B-12] Gabapentin [Neurontin] 200 mg PO HS 01/15/18 01/15/18 History Glucosam/Brian-Msm1/C/Richie/Bosw 1 tab PO BID 01/15/18 01/15/18 History [Glucosamine-Chondroitin Tablet] Lisinopril [Zestril] 20 mg PO DAILY 01/15/18 01/15/18 History Naproxen Sodium [Aleve] 220 mg PO DAILY 01/15/18 01/15/18 History metFORMIN HCL ER [Glucophage Xr] 500 mg PO PC-SUPPER 01/15/18 01/15/18 History Nitroglycerin Sl Tabs [Nitrostat] 0.4 mg SUBLINGUAL Q5M PRN #20 tab 01/16/18 Rx Allergies Allergy/AdvReac Type Severity Reaction Status Date / Time codeine Allergy Unknown Verified 01/15/18 19:03 Physical Exam Vitals: Vital Signs Temp Pulse Pulse Pulse Resp BP BP 01/16/18 12:00 85 17 119/62 01/16/18 08:00 97.6 F 107 H 17 113/65 01/16/18 04:00 93 18 127/68 01/16/18 03:46 16 01/16/18 01:13 97.9 F 89 16 159/76 01/16/18 00:00 98 F 84 16 148/67 01/15/18 23:00 79 18 147/70 01/15/18 22:59 82 16 144/66 01/15/18 22:00 98 F 85 18 143/65 01/15/18 21:00 82 18 146/67 01/15/18 20:00 98 F 62 20 146/67 01/15/18 19:45 62 18 134/60 01/15/18 19:29 98.4 F 62 18 132/60 01/15/18 19:00 68 01/15/18 18:25 97 F L 60 16 170/71 Pulse Ox 01/16/18 12:00 97 01/16/18 08:00 95 01/16/18 04:00 95 01/16/18 03:46 01/16/18 01:13 98 01/16/18 00:00 98 01/15/18 23:00 97 01/15/18 22:59 98 01/15/18 22:00 97 01/15/18 21:00 97 01/15/18 20:00 98 01/15/18 19:45 97 01/15/18 19:29 97 01/15/18 19:00 01/15/18 18:25 99 Intake and Output 01/15/18 01/16/18 01/16/18 22:59 06:59 14:59 Intake Total 80 Balance 80 Intake: IV 80 Sodium Chloride 0.9% 1, 80 000 ml @ 100 mls/hr IV . Q10H STA Rx#:[id number] Other: Voiding Method Toilet Weight 57.153 kg 56 kg PHYSICAL EXAMINATION: Patient is lying in the bed comfortably, no acute distress, awake alert and oriented.. HEENT: Normocephalic. Neck is supple. Pupils reactive. Nostrils clear. Oral cavity is moist. Ears reveal no drainage. Neck reveals no JVD, carotid bruits, or thyromegaly. CHEST EXAMINATION: Trachea is central. Symmetrical expansion. Lung leos clear to auscultation and percussion. CARDIAC: Normal S1, S2 with no gallops. No murmurs ABDOMEN: Soft. Bowel sounds normal. No organomegaly. No abdominal bruits. Extremities: reveal no edema. No clubbing or cyanosis Neurologically awake, alert, oriented x3 with well-coordinated movements. No focal deficits noted Skin: No rash or skin lesions. Psychiatric: Coperative. Nonsuicidal Musculoskeletal: No joint swelling or deformity. Normal range of motion. Results CBC & Chem 7: 01/15/18 19:05 01/15/18 19:05 Labs: Abnormal Lab Results - Last 24 Hours (Table) 01/15/18 01/15/18 01/15/18 Range/Units 19:05 19:05 19:05 WBC 14.8 H (3.8-10.6) k/uL Neutrophils # 12.0 H (1.3-7.7) k/uL APTT (22.0-30.0) sec Glucose 151 H (74-99) mg/dL POC Glucose (mg/dL) (75-99) mg/dL CK-MB (CK-2) 3.7 H* (0.0-2.4) ng/mL HDL Cholesterol (40-60) mg/dL Amylase 122 H (30-110) U/L 01/16/18 01/16/18 01/16/18 Range/Units 01:53 03:49 03:49 WBC (3.8-10.6) k/uL Neutrophils # (1.3-7.7) k/uL APTT 61.4 H (22.0-30.0) sec Glucose (74-99) mg/dL POC Glucose (mg/dL) (75-99) mg/dL CK-MB (CK-2) 3.0 H* (0.0-2.4) ng/mL HDL Cholesterol 81 H (40-60) mg/dL Amylase (30-110) U/L 01/16/18 01/16/18 Range/Units 06:29 11:51 WBC (3.8-10.6) k/uL Neutrophils # (1.3-7.7) k/uL APTT (22.0-30.0) sec Glucose (74-99) mg/dL POC Glucose (mg/dL) 174 H 247 H (75-99) mg/dL CK-MB (CK-2) (0.0-2.4) ng/mL HDL Cholesterol (40-60) mg/dL Amylase (30-110) U/L Thrombosis Risk Factor Assmnt - Choose All That Apply Any of the Below Risk Factors Present?: Yes Each Risk Factor Represents 3 Points: Age 75 years or older Other congenital or acquired thrombophilia - If yes, enter type in comment: No Thrombosis Risk Factor Assessment Total Risk Factor Score: 3 Thrombosis Risk Factor Assessment Level: Moderate Risk Assessment and Plan Assessment: Atypical chest pain. Rule out acute coronary syndrome Epigastric abdominal pain with slightly elevated amylase and lipase 122 and 288. Ultrasound ABDOMEN was ordered Constipation resolved History of coronary artery disease and stent placement in 2012 Hypertension Hyperlipidemia Hypothyroidism History of TX Osteoarthritis DVT prophylaxis Plan: patient will be continued on telemetry monitoring. Patient was continued on heparin drip. Serial EKGs and troponins are negative. Currently patient is symptomatic. Cardiology recommends no further intervention at this time. Time with Patient: Greater than 30
--- NOTE | 2018-01-16 15:55 | P.DS ---
Providers Date of admission: 01/15/18 22:05 Expected date of discharge: 01/16/18 Attending physician: Sterling Skaggs Consults: 01/15/18 22:00 Consult Physician Urgent Consulting Provider: [place] Roth Consult Reason/Comments: Chest pain Do you want consulting provider notified?: Yes Primary care physician: [facility] [place] Course: Atypical chest pain. Rule out acute coronary syndrome Epigastric abdominal pain with slightly elevated amylase and lipase 122 and 288. Ultrasound ABDOMEN was ordered Constipation resolved History of coronary artery disease and stent placement in 2012 Hypertension Hyperlipidemia Hypothyroidism History of TX Osteoarthritis DVT prophylaxis Patient is a 82-year-old female with a known history of coronary artery disease and stent placement, diabetes type 2, hypertension, hyperlipidemia and history of TX and osteoarthritis and hypothyroidism came to ER with the complaints of chest pain. Chest pain is mainly in the lower anterior in the epigastric region felt like a bandlike's sensation around the epigastric area. No nausea vomiting or diarrhea. No recent illnesses. denies any nausea no vomiting no diaphoresis no shortness of breath no pleuritic chest pain. No headaches no neck stiffness no symptoms of TIA or CVA Chest x-ray showed no acute process . EKG showed normal sinus rhythm, ST-T abnormality Walsh Amylase 122 lipase 288 Patient says that chest pain resolved after nitroglycerin in the ER. Currently denied any abdominal pain or chest pain. patient was continued on telemetry monitoring. Patient was continued on heparin drip. Serial EKGs and troponins are negative. Currently patient is symptomatic. Cardiology recommends no further intervention at this time. Heparin has been discontinued. Ultrasound of abdomen was ordered by the patient wishes to get it done as an outpatient. Patient was advised to follow with her primary doctor Dr. Ortiz as an outpatient. Otherwise patient is stable to be discharged home. Discharge physical examination was done Vital Signs 01/15/18 01/15/18 01/15/18 18:25 19:00 19:29 Temperature 97 F L 98.4 F Pulse Rate 60 62 Pulse Rate [ 68 Bilateral [employer] ] Pulse Rate [ Pulse Oximetery ] Respiratory 16 18 Rate Blood Pressure 170/71 132/60 Blood Pressure [Left Arm] O2 Sat by Pulse 99 97 Oximetry 01/15/18 01/15/18 01/15/18 19:45 20:00 21:00 Temperature 98 F Pulse Rate 62 62 82 Pulse Rate [ Bilateral [employer] ] Pulse Rate [ Pulse Oximetery ] Respiratory 18 20 18 Rate Blood Pressure 134/60 146/67 146/67 Blood Pressure [Left Arm] O2 Sat by Pulse 97 98 97 Oximetry 01/15/18 01/15/18 01/15/18 22:00 22:59 23:00 Temperature 98 F Pulse Rate 85 82 79 Pulse Rate [ Bilateral [employer] ] Pulse Rate [ Pulse Oximetery ] Respiratory 18 16 18 Rate Blood Pressure 143/65 144/66 147/70 Blood Pressure [Left Arm] O2 Sat by Pulse 97 98 97 Oximetry 01/16/18 01/16/18 01/16/18 00:00 01:13 03:46 Temperature 98 F 97.9 F Pulse Rate 84 Pulse Rate [ 89 Bilateral [employer] ] Pulse Rate [ Pulse Oximetery ] Respiratory 16 16 16 Rate Blood Pressure 148/67 Blood Pressure 159/76 [Left Arm] O2 Sat by Pulse 98 98 Oximetry 01/16/18 01/16/18 01/16/18 04:00 08:00 12:00 Temperature 97.6 F Pulse Rate Pulse Rate [ 93 Bilateral [employer] ] Pulse Rate [ 107 H 85 Pulse Oximetery ] Respiratory 18 17 17 Rate Blood Pressure Blood Pressure 127/68 113/65 119/62 [Left Arm] O2 Sat by Pulse 95 95 97 Oximetry Patient Condition at Discharge: Good Plan - Discharge Summary Discharge Rx Participant: No New Discharge Prescriptions: New Nitroglycerin Sl Tabs [Nitrostat] 0.4 mg SUBLINGUAL Q5M PRN #20 tab PRN Reason: Chest Pain Continue Atorvastatin [Lipitor] 40 mg PO DAILY Levothyroxine Sodium [Synthroid] 100 mcg PO MOTUWETHFRSA Aspirin 81 mg PO MOWEFR Gabapentin [Neurontin] 100 mg PO BID@0800,1500 Semprex 1 tab PO BID Calcium Carbonate/Vitamin D3 [Calcium 600-Vit D3 400 Tablet] 1 tab PO BID Lactobacillus Acidophilus [Acidophilus] 1 tab PO DAILY Multivitamins, Thera [Multivitamin (formulary)] 1 tab PO DAILY Metoprolol Tartrate [Lopressor] 25 mg PO BID tab metFORMIN HCL ER [Glucophage Xr] 500 mg PO PC-SUPPER Naproxen Sodium [Aleve] 220 mg PO DAILY Lisinopril [Zestril] 20 mg PO DAILY Glucosam/Brian-Msm1/C/Richie/Bosw [Glucosamine-Chondroitin Tablet] 1 tab PO BID Gabapentin [Neurontin] 200 mg PO HS Cyanocobalamin (Vitamin B-12) [Vitamin B-12] 1,000 mcg PO DAILY Discharge Medication List Aspirin 81 mg PO MOWEFR 04/03/15 [History] Atorvastatin [Lipitor] 40 mg PO DAILY 04/03/15 [History] Calcium Carbonate/Vitamin D3 [Calcium 600-Vit D3 400 Tablet] 1 tab PO BID [History] Gabapentin [Neurontin] 100 mg PO BID@0800,1500 04/03/15 [History] Levothyroxine Sodium [Synthroid] 100 mcg PO MOTUWETHFRSA 04/03/15 [History] Semprex 1 tab PO BID 04/03/15 [History] Lactobacillus Acidophilus [Acidophilus] 1 tab PO DAILY 04/19/17 [History] Multivitamins, Thera [Multivitamin (formulary)] 1 tab PO DAILY 04/26/17 [History ] Metoprolol Tartrate [Lopressor] 25 mg PO BID tab 04/28/17 [Rx] Cyanocobalamin (Vitamin B-12) [Vitamin B-12] 1,000 mcg PO DAILY 01/15/18 [ History] Gabapentin [Neurontin] 200 mg PO HS 01/15/18 [History] Glucosam/Brian-Msm1/C/Richie/Bosw [Glucosamine-Chondroitin Tablet] 1 tab PO BID [History] Lisinopril [Zestril] 20 mg PO DAILY 01/15/18 [History] Naproxen Sodium [Aleve] 220 mg PO DAILY 01/15/18 [History] metFORMIN HCL ER [Glucophage Xr] 500 mg PO PC-SUPPER 01/15/18 [History] Nitroglycerin Sl Tabs [Nitrostat] 0.4 mg SUBLINGUAL Q5M PRN #20 tab 01/16/18 [Rx ] Follow up Appointment(s)/Referral(s): Rommel Tolbert MD [STAFF PHYSICIAN] - 2 Weeks Juan Farrell MD [Primary Care Provider] - 1-2 days Patient Instructions/Handouts: Angina (DC) Discharge Disposition: HOME SELF-CARE
[2018-01-16 20:09] LABS: Hemoglobin A1C 6.2 % (4.0-6.0)
--- NOTE | 2018-01-16 23:45 | CONS ---
CONSULTATION DATE OF SERVICE: 01/16/2018. HISTORY: Maria Bryant is an 82-year-old lady who sees Dr. Tolbert in the outpatient setting. This lady came in with an episode of chest discomfort. The quality of the pain is very atypical, sharp in nature, random fashion, happens in the left anterior chest and lasts a few seconds but it comes and goes. However after arrival, her troponins are normal. She is resting comfortably. Denies any chest discomfort at the time of my evaluation. Her 3 sets of troponins are normal. EKG's are unremarkable with nonspecific ST-T changes. She also had a CT angiography performed, which was unremarkable for any aortic pathology or pulmonary embolism. Apparently, she had a stress test within the last 6 to 8 months, which was unremarkable per patient. She had a stenting performed remotely in 2012, the details are unavailable. She also had some epigastric discomfort which has resolved. MEDICATIONS: 1. Lipitor 40 mg daily. 2. Aspirin 81 mg daily. 3. Levothyroxine 100 mcg daily. 4. Multivitamins. 5. Gabapentin. 6. Lisinopril 20 mg daily. 7. Metformin 500 mg daily. PHYSICAL EXAMINATION: Blood pressure is 118/70, pulse rate is 70 per minute and regular. HEENT: Unremarkable. Fundus was not examined by me. NECK: Supple. No JVD. I do not hear a carotid bruit. HEART: Reveals S1, S2 with a short systolic murmur. LUNGS: Reveal decent air entry bilateral lung leos. ABDOMEN: Soft, nontender. EXTREMITIES: Lower extremities revealed palpable pulses. No edema. CENTRAL NERVOUS SYSTEM: Normal. EKG revealed a sinus mechanism, nonspecific ST-T changes. IMPRESSION: 1. Atypical chest pain. The patient has known coronary artery disease. Had a stress test that was negative within the last 1 year. 2. Hypertension. 3. Hyperlipidemia. RECOMMENDATIONS: I am recommending that we increase activity. If she has no further symptoms, she can be discharged with the understanding. She will see Dr. Tolbert in the next week. The patient already has an appointment. Thank you very much for the consult. MMODL / IJN: [id number] /
[2018-01-17] MEDS ORDERED: LEVOTHYROXINE 100 MCG TAB PO SCH (06:30)
== END 2018-01-16 15:30 | disposition home or self-care (01) ==
LOC: EC 18:22 → 3OBS 22:05 → 6SEL 01-16 01:13
PROVIDERS: ADMIT Hospitalist; ATTEND Hospitalist
DX: R07.89 Other chest pain (principal); R10.13 Epigastric pain; R94.8 Abnormal results of function studies of other organs and systems; K59.00 Constipation, unspecified; I25.10 Atherosclerotic heart disease of native coronary artery without angina pectoris; Z95.5 Presence of coronary angioplasty implant and graft; I10 Essential (primary) hypertension; E78.5 Hyperlipidemia, unspecified; E03.9 Hypothyroidism, unspecified; I25.2 Old myocardial infarction; M19.90 Unspecified osteoarthritis, unspecified site; E11.9 Type 2 diabetes mellitus without complications; Z79.82 Long term (current) use of aspirin; Z79.899 Other long term (current) drug therapy; Z79.84 Long term (current) use of oral hypoglycemic drugs; Z79.1 Long term (current) use of non-steroidal anti-inflammatories (NSAID); Z88.5 Allergy status to narcotic agent; Z80.3 Family history of malignant neoplasm of breast
CPT/HCPCS: 99291; 96375 ×3; 96361 ×4; 96376 ×3; 96365 ×2; 96366 ×4; 36415; 93005; 80061; 80053; 82150; 82550 ×2; 82553 ×2; 83690; 83735; 84484 ×2; 85025; 85610; 85730 ×2; 86140; 83036; 71046; 74018; 71275; G0378 ×3; J2270; J1644 ×2; Q9967; J1170

== ENCOUNTER → 2018-01-31 | Outpatient (CLI) | payer MEDICARE, BC ==
--- NOTE | 2018-01-31 08:57 | US ---
EXAMINATION TYPE: US abdomen complete DATE OF EXAM: 01/31/2018 COMPARISON: CT abdomen and pelvis 01/03/2013 CLINICAL HISTORY: R10.9 Abdominal Pain. EXAM MEASUREMENTS: Liver Length: 14.3 cm Gallbladder Wall: 0.2 cm CBD: 0.3 cm Spleen: 11.9 cm Right Kidney: 8.5 x 3.9 x 4.4 cm Left Kidney: 8.5 x 4.1 x 3.6 cm Pancreas: Tail obscured by overlying bowel gas, visualized portions show no abnormalities Liver: wnl Gallbladder: Mobile nonshadowing echogenic foci visualized Evidence for sonographic Chaves's sign: No CBD: wnl as visualized, distal portion is obscured by bowel gas Spleen: wnl Right Kidney: Measuring small, however symmetric with the left. no hydronephrosis, no cystic or marin d mass Left Kidney: Measuring small, however symmetric with the right. no hydronephrosis, no cystic or marin d mass Upper IVC: wnl Abd Aorta: Atherosclerotic changes visualized The liver is homogenous. The intrahepatic portion of the IVC. Aorta shows no aneurysmal change. Comm on bile duct is unremarkable. Gallbladder shows no shadowing mobile gallstones. Mobile nonshadowing h yperechoic foci favor tiny stones or sludge. Gallbladder wall is mildly thickened at portions on imag es saved. The visualized portions of the pancreas are homogenous. The spleen is unremarkable. Kidne ys are symmetric and free of hydronephrosis. No renal lesions are seen on images saved. IMPRESSION: Multiple small stones and/or gallbladder sludge with mild gallbladder wall thickening. So nographic Chaves's sign noted negative. Consider HIDA scan follow-up.
== END | disposition home or self-care (01) ==
LOC: RADUSWWP 07:20
PROVIDERS: ATTEND Family Medicine
DX: R10.9 Unspecified abdominal pain (principal)
CPT/HCPCS: 76700

== ENCOUNTER → 2018-08-22 | Outpatient (CLI) | payer MEDICARE, BC ==
[~2018-08-22] MED LIST changes: -SODIUM CHLORIDE 0.9% 250 ML in EMPTY BAG 1 BAG IV PRN; +ZOLEDRONIC ACID 5 MG in SODIUM CHLORIDE 0.9% 100 ML IV NR; -ZOLEDRONIC ACID 5 MG in SODIUM CHLORIDE 0.9% 100 ML IV ONE
[2018-08-22 13:28] VITALS: BP 139/63; PULSE 73; RESP 16; TEMP 98.1
== END | disposition home or self-care (01) ==
LOC: PROCWHC3 13:10
PROVIDERS: ATTEND Family Medicine
DX: M81.0 Age-related osteoporosis without current pathological fracture (principal)
CPT/HCPCS: 96365; J3489

== ENCOUNTER → 2019-08-23 | Outpatient (CLI) | payer MEDICARE, BC ==
[~2019-08-23] MED LIST changes: +SODIUM CHLORIDE 0.9% 500 ML 500 ML in EMPTY BAG 1 BAG IV PRN; -SODIUM CHLORIDE 0.9% 500 ML in EMPTY BAG 1 BAG IV PRN; -ZOLEDRONIC ACID 5 MG in SODIUM CHLORIDE 0.9% 100 ML IV NR; +ZOLEDRONIC ACID 5 MG in SODIUM CHLORIDE 0.9% 100 ML IV ONE
[2019-08-23 10:26] VITALS: BP 149/68; PULSE 58; RESP 16; TEMP 97.8
== END ==
LOC: PROCWHC3 10:17
PROVIDERS: ATTEND Family Medicine
DX: M81.0 Age-related osteoporosis without current pathological fracture (principal)
CPT/HCPCS: 96365; J3489

== ENCOUNTER → 2019-10-03 | Outpatient (CLI) | payer MEDICARE, BC ==
--- NOTE | 2019-10-03 14:39 | BD ---
EXAMINATION TYPE: Axial Bone Density DATE OF EXAM: 10/03/2019 COMPARISON: Prior DEXA bone scan September 30, 2017 CLINICAL HISTORY: osteoporosis Height: 4'10 Weight: 124 FRAX RISK QUESTIONS: Secondary Osteoporosis: RISK FACTORS HISTORY OF: Active: n Postmenopausal woman: y MEDICATIONS: Thyroid Medications: Which medication: Levothyroxine How Lon years Additional Medications: acid reflux, lisinopril Additional History: EXAM MEASUREMENTS: Bone mineral densitometry was performed using the [employer] System. Bone mineral density as measured about the Lumbar spine is: ----- L1-L4(G/cm2): 1.159 T Score Values are as follows: ----- L2: 1.1 ----- L3: -0.8 ----- L4: 0.1 ----- L1-L4: -0.2 Bone mineral density has: Increased 19.8% since study of: 09/30/2017 Bone mineral density about the R hip (g/cm2): 1.025 Bone mineral density about the L hip (g/cm2): 0.781 T Score values are as follows: -----R Neck: -0.1 -----L Neck: -1.9 -----R Total: -1.1 -----L Total: -1.5 Bone mineral density has: Increased 1.7% since study of: 09/30/2017 IMPRESSION: Osteopenia (T Score between -2.5 and -1) remains present left hip. There remains slightly increased risk of fracture and the patient may be considered for treatment. Re-Screen 2-5 years. NOTE: T-SCORE=SD OF THE YOUNG ADULT MEAN.
== END | disposition home or self-care (01) ==
LOC: RADBDWWP 12:58
PROVIDERS: ATTEND Family Medicine
DX: M85.80 Other specified disorders of bone density and structure, unspecified site (principal)
CPT/HCPCS: 77080

== ENCOUNTER → 2020-08-26 | Outpatient (CLI) | payer BC, MEDICARE ==
[~2020-08-26] MED LIST changes: +ZOLEDRONIC ACID 5 MG in SODIUM CHLORIDE 0.9% 100 ML IV NR; -ZOLEDRONIC ACID 5 MG in SODIUM CHLORIDE 0.9% 100 ML IV ONE
[2020-08-26 11:36] VITALS: BP 130/74; PULSE 84; RESP 16; TEMP 97.8
== END | disposition home or self-care (01) ==
LOC: PROCWHC3 11:25
PROVIDERS: ATTEND Family Medicine
DX: M81.0 Age-related osteoporosis without current pathological fracture (principal)
CPT/HCPCS: 96365; J3489

== ENCOUNTER → 2021-08-28 | Outpatient (CLI) | payer MEDICARE ==
[2021-08-28 10:02] VITALS: BP 126/63; PULSE 89; RESP 16; TEMP 98.8
== END ==
LOC: PROCWHC3 09:45
PROVIDERS: ATTEND Family Medicine
DX: M81.0 Age-related osteoporosis without current pathological fracture (principal); Z88.5 Allergy status to narcotic agent
CPT/HCPCS: 96365; J3489

== ENCOUNTER 2021-10-24 01:34 | Inpatient (IN) | payer MEDICARE ==
[2021-10-24] MEDS ORDERED: ONDANSETRON 4 MG/2 ML VIAL IVP STA (02:04)
[2021-10-24] MEDS ORDERED: SODIUM CHLORIDE 0.9% 1,000 ML IV STA (02:04)
--- NOTE | 2021-10-24 02:07 | ED ---
Nausea/Vomiting/Diarrhea HPI - General Chief complaint: Abdominal Pain Stated complaint: vomiting Time Seen by Provider: 10/24/21 01:40 Source: patient, RN notes reviewed, old records reviewed Mode of arrival: ambulatory Limitations: no limitations - History of Present Illness Initial comments: This is an 86-year-old female to the emergency department for evaluation. Patient coming in today for evaluation of significant nausea vomiting and pain. Abdominal pain and cramping. Patient has been vomiting profusely especially here in the emergency department. No fevers or travel history no sick contacts. Symptoms started today. Patient does have history of diverticulitis with bowel resection MD complaint: nausea, vomiting, diarrhea -: days(s) Description of Vomiting: watery, bilious Location: diffuse Radiation: none Severity: severe Severity scale (1-10): 9 Quality: cramping Consistency: constant Improves with: none Worsens with: none Context: possible food poisoning Associated Symptoms: denies other symptoms, loss of appetite, nausea/vomiting - Related Data Home Medications Medication Instructions Recorded Confirmed Aspirin 81 mg PO MOWEFR 04/03/15 08/28/21 Atorvastatin [Lipitor] 40 mg PO DAILY 04/03/15 08/28/21 Calcium Carbonate/Vitamin D3 1 tab PO BID 04/03/15 08/28/21 [Calcium 600-Vit D3 400 Tablet] Gabapentin [Neurontin] 100 mg PO BID@0800,1500 04/03/15 08/28/21 Levothyroxine Sodium [Synthroid] 100 mcg PO [id number] 04/03/15 08/28/21 Semprex 1 tab PO BID 04/03/15 08/28/21 Lactobacillus Acidophilus 1 tab PO DAILY 04/19/17 08/28/21 [Acidophilus] Multivitamins, Thera [Multivitamin 1 tab PO DAILY 04/26/17 08/28/21 (formulary)] Cyanocobalamin (Vitamin B-12) 1,000 mcg PO DAILY 01/15/18 08/28/21 [Vitamin B-12] Gabapentin [Neurontin] 200 mg PO HS 01/15/18 08/28/21 Glucosam/Brian-Msm1/C/Richie/Bosw 1 tab PO BID 01/15/18 08/28/21 [Glucosamine-Chondroitin Tablet] Naproxen Sodium [Aleve] 220 mg PO DAILY 01/15/18 08/28/21 lisinopriL [Zestril] 20 mg PO DAILY 01/15/18 08/28/21 metFORMIN HCL ER [Glucophage XR] 500 mg PO PC-SUPPER 01/15/18 08/28/21 Previous Rx's Medication Instructions Recorded Metoprolol Tartrate [Lopressor] 25 mg PO BID tab 04/28/17 Nitroglycerin Sl Tabs [Nitrostat] 0.4 mg SUBLINGUAL Q5M PRN #20 tab 01/16/18 Allergies Allergy/AdvReac Type Severity Reaction Status Date / Time codeine Allergy Unknown Verified 10/24/21 01:40 Review of Systems ROS Statement: Those systems with pertinent positive or pertinent negative responses have been documented in the HPI. ROS Other: All systems not noted in ROS Statement are negative. Past Medical History Past Medical History: Coronary Artery Disease (CAD), Diabetes Mellitus, H yperlipidemia, Hypertension, Myocardial Infarction ([place]), Osteoarthritis (OA), Thyroid Disorder Additional Past Medical History / Comment(s): heart stent 01/04/13 head injur jan 01 2015 was inpt in trauma center in [place]. osteoporosis Last Myocardial Infarction Date:: 01-01-15 History of Any Multi-Drug Resistant Organisms: None Reported Past Surgical History: Bowel Resection, Heart Catheterization With Stent, Tonsillectomy, Tubal Ligation Additional Past Surgical History / Comment(s): cataracts Past Anesthesia/Blood Transfusion Reactions: No Reported Reaction Date of Last Stent Placement:: 01/04/13 Past Psychological History: No Psychological Hx Reported Smoking Status: Never smoker Past Alcohol Use History: None Reported Past Drug Use History: None Reported - Past Family History Daughter(s) Family Medical History: Cancer Additional Family Medical History / Comment(s): breast cancer General Exam Limitations: no limitations General appearance: alert, in no apparent distress, anxious Head exam: Present: atraumatic, normocephalic, normal inspection Eye exam: Present: normal appearance, PERRL, EOMI. Absent: scleral icterus, conjunctival injection, periorbital swelling ENT exam: Present: normal exam, mucous membranes moist Neck exam: Present: normal inspection. Absent: tenderness, meningismus, lymphadenopathy Respiratory exam: Present: normal lung sounds bilaterally. Absent: respiratory distress, wheezes, rales, rhonchi, stridor Cardiovascular Exam: Present: regular rate, normal rhythm, normal heart sounds. Absent: systolic murmur, diastolic murmur, rubs, gallop, clicks GI/Abdominal exam: Present: soft, normal bowel sounds. Absent: distended, tenderness, guarding, rebound, rigid Extremities exam: Present: normal inspection, full ROM, normal capillary refill. Absent: tenderness, pedal edema, joint swelling, calf tenderness Back exam: Present: normal inspection Neurological exam: Present: alert, oriented X3, CN II-XII intact Psychiatric exam: Present: normal affect, normal mood Skin exam: Present: warm, dry, intact, normal color. Absent: rash Course Vital Signs 10/24/21 01:36 Temperature 98.0 F Pulse Rate 97 Respiratory 20 Rate Blood Pressure 124/75 O2 Sat by Pulse 98 Oximetry - Reevaluation(s) Reevaluation #1: 10/24/21 02:15 Medical record is reviewed Reevaluation #2: 10/24/21 03:52 Patient continued vomiting of significant bowel material here in the ER Reevaluation #3: 10/24/21 03:53 Patient also complaining of abdominal pain on the wall symptoms are starting to improve Reevaluation #4: 10/24/21 03:53 Patient family informed of results and questions answered - Consultations Consultation #1: Spoke with H will be to admit this patient Medical Decision Making - Medical Decision Making 86 female to the emergency room today. Patient presents today for evaluation regards to nausea vomiting and significant abdominal pain. Patient be admitted for further treatment of - Lab Data Result diagrams: 10/24/21 02:15 10/24/21 02:15 Lab Results 10/24/21 10/24/21 10/24/21 Range/Units 02:15 02:15 02:15 WBC 21.0 H (3.8-10.6) k/uL RBC 5.28 (3.80-5.40) m/uL Hgb 16.4 H (11.4-16.0) gm/dL Hct 50.1 H (34.0-46.0) % MCV 94.7 (80.0-100.0) fL MCH 31.1 (25.0-35.0) pg MCHC 32.8 (31.0-37.0) g/dL RDW 12.5 (11.5-15.5) % Plt Count 309 (150-450) k/uL MPV 7.5 Neutrophils % 90 % Lymphocytes % 4 % Monocytes % 4 % Eosinophils % 1 % Basophils % 0 % Neutrophils # 18.8 H (1.3-7.7) k/uL Lymphocytes # 0.9 L (1.0-4.8) k/uL Monocytes # 0.8 (0-1.0) k/uL Eosinophils # 0.2 (0-0.7) k/uL Basophils # 0.1 (0-0.2) k/uL PT 10.6 (9.0-12.0) sec INR 1.0 (<1.2) APTT 22.0 (22.0-30.0) sec Sodium 137 (137-145) mmol/L Potassium 4.1 (3.5-5.1) mmol/L Chloride 105 (98-107) mmol/L Carbon Dioxide 20 L (22-30) mmol/L Anion Gap 12 mmol/L BUN 18 H (7-17) mg/dL Creatinine 0.95 (0.52-1.04) mg/dL Est GFR (CKD-EPI)AfAm 64 (>60 ml/min/1.73 sqM) Est GFR (CKD-EPI)NonAf 55 (>60 ml/min/1.73 sqM) Glucose 171 H (74-99) mg/dL Plasma Lactic Acid Niranjan (0.7-2.0) mmol/L Calcium 11.0 H (8.4-10.2) mg/dL Phosphorus 3.9 (2.5-4.5) mg/dL Magnesium 1.8 (1.6-2.3) mg/dL Total Bilirubin 1.1 (0.2-1.3) mg/dL AST 42 H (14-36) U/L ALT 26 (4-34) U/L Alkaline Phosphatase 87 (38-126) U/L Troponin I (0.000-0.034) ng/mL NT-Pro-B Natriuret Pep pg/mL Total Protein 7.4 (6.3-8.2) g/dL Albumin 4.6 (3.5-5.0) g/dL Lipase 239 (23-300) U/L 10/24/21 10/24/21 10/24/21 Range/Units 02:15 02:15 02:15 WBC (3.8-10.6) k/uL RBC (3.80-5.40) m/uL Hgb (11.4-16.0) gm/dL Hct (34.0-46.0) % MCV (80.0-100.0) fL MCH (25.0-35.0) pg MCHC (31.0-37.0) g/dL RDW (11.5-15.5) % Plt Count (150-450) k/uL MPV Neutrophils % % Lymphocytes % % Monocytes % % Eosinophils % % Basophils % % Neutrophils # (1.3-7.7) k/uL Lymphocytes # (1.0-4.8) k/uL Monocytes # (0-1.0) k/uL Eosinophils # (0-0.7) k/uL Basophils # (0-0.2) k/uL PT (9.0-12.0) sec INR (<1.2) APTT (22.0-30.0) sec Sodium (137-145) mmol/L Potassium (3.5-5.1) mmol/L Chloride (98-107) mmol/L Carbon Dioxide (22-30) mmol/L Anion Gap mmol/L BUN (7-17) mg/dL Creatinine (0.52-1.04) mg/dL Est GFR (CKD-EPI)AfAm (>60 ml/min/1.73 sqM) Est GFR (CKD-EPI)NonAf (>60 ml/min/1.73 sqM) Glucose (74-99) mg/dL Plasma Lactic Acid Niranjan 1.2 (0.7-2.0) mmol/L Calcium (8.4-10.2) mg/dL Phosphorus (2.5-4.5) mg/dL Magnesium (1.6-2.3) mg/dL Total Bilirubin (0.2-1.3) mg/dL AST (14-36) U/L ALT (4-34) U/L Alkaline Phosphatase (38-126) U/L Troponin I <0.012 (0.000-0.034) ng/mL NT-Pro-B Natriuret Pep 195 pg/mL Total Protein (6.3-8.2) g/dL Albumin (3.5-5.0) g/dL Lipase (23-300) U/L - EKG Data -: EKG Interpreted by Me (EKG shows sinus tachycardia 106 CT 154 QRS 86 486) - Radiology Data Radiology results: report reviewed (CT of abdomen and pelvis does show ileus), image reviewed Disposition Clinical Impression: Abdominal pain, Nausea & vomiting Disposition: ADMITTED IP TO THIS HOSP Condition: Fair Is patient prescribed a controlled substance at d/c from ED?: No Referrals: Juan Farrell MD [Primary Care Provider] - 1-2 days
[2021-10-24 02:33] LABS: Basophils # (A) 0.1 k/uL (0-0.2); Basophils % (A) 0 %; Eosinophils # (A) 0.2 k/uL (0-0.7); Eosinophils % (A) 1 %; HCT 50.1 % (34.0-46.0); HGB 16.4 gm/dL (11.4-16.0); Lymphocytes # (A) 0.9 k/uL (1.0-4.8); Lymphocytes % (A) 4 %; MCH 31.1 pg (25.0-35.0); MCHC 32.8 g/dL (31.0-37.0); MCV 94.7 fL (80.0-100.0); Mean Platelet Volume 7.5; Monocytes # (A) 0.8 k/uL (0-1.0); Monocytes % (A) 4 %; Neutrophils # (A) 18.8 k/uL (1.3-7.7); Neutrophils % (A) 90 %; Platelet Count 309 k/uL (150-450); RBC 5.28 m/uL (3.80-5.40); RDW 12.5 % (11.5-15.5)
[2021-10-24 02:45] LABS: Albumin 4.6 g/dL (3.5-5.0); Magnesium 1.8 mg/dL (1.6-2.3); Phosphorus 3.9 mg/dL (2.5-4.5); Potassium 4.1 mmol/L (3.5-5.1); Total Bilirubin 1.1 mg/dL (0.2-1.3); Total Protein 7.4 g/dL (6.3-8.2)
[2021-10-24] MEDS ORDERED: MORPHINE SULFATE 4 MG/ML SYRINGE IVP STA (02:48)
[2021-10-24] MEDS ORDERED: LORazepam 2 MG/ML INJ IV STA (02:48)
[2021-10-24 02:51] LABS: Prothrombin Time 10.6 sec (9.0-12.0)
[2021-10-24] MEDS ORDERED: ONDANSETRON 4 MG/2 ML VIAL IVP PRN (03:50)
[2021-10-24] MEDS ORDERED: NALOXONE 0.4 MG/ML 1 ML VIAL IV PRN (03:50)
[2021-10-24] MEDS ORDERED: LORazepam 2 MG/ML INJ IV PRN (03:50)
[2021-10-24] MEDS ORDERED: MORPHINE SULFATE 4 MG/ML SYRINGE IV PRN (03:50)
[2021-10-24] MEDS ORDERED: AMPICILLIN-SULBACTAM 3 GM in SODIUM CHLORIDE 0.9% 100 ML IVPB STA (03:50)
--- NOTE | 2021-10-24 04:13 | CT ---
EXAMINATION TYPE: CT abdomen pelvis w con DATE OF EXAM: 10/24/2021 COMPARISON: 01/03/2013 HISTORY: Abdominal pain/Vomiting CT DLP: 606 mGycm Automated exposure control for dose reduction was used. CONTRAST: Performed with IV Contrast, patient injected with 80 mL of Isovue 300. Lung bases are clear. There is no pleural effusion. Heart size is normal. There is no pericardial eff usion. There are clips from cholecystectomy. There is mild ectasia of the biliary tree. Common bile duct vlad sures 8 mm. Spleen is intact. Stomach is intact. There is no pancreatic mass. There is no adrenal mass. Kidneys show satisfactory contrast opacification. There is no hydronephrosi s. Bladder distends smoothly. There is 9 x 5.5 cm cystic mass in the pelvis on the right side posteri michael. New graft there are multiple dilated fluid-filled loops of small bowel in the mid abdomen. Smal l bowel dilated up to 3.3 cm. The appendix appears normal. There are spondylotic changes in the lumba r spine. There is mild thoracolumbar levoscoliosis. There is no compression fracture. The bony pelvis is intact. There is some hypertrophic osteoarthritis in the right hip joint. Sacroiliac joints are i ntact. Uterus appears normal. IMPRESSION: There is dilated small bowel in the mid abdomen suggestive of ileus or partial mechanical obstruction and appears new compared to old exam. Transition point not seen. Sigmoid diverticulosis without diverticulitis. Large pelvic cyst is probably right ovarian cyst and significantly increased in size compared to old exam. Previous exam measures 3.5 cm. There is mild enlargement of the biliary tree which is increased compared to old exam. This is probab ly related to cholecystectomy. I do not suspect biliary obstruction.
[2021-10-24] MEDS: SODIUM CHLORIDE 0.9% 1,000 ML IV SCH ×3 (05:00→20:38)
[2021-10-24 08:48] LABS: Appearance,Urine Clear (Clear); Bilirubin,Urine Negative (Negative); Blood,Urine Negative (Negative); Color,Urine Yellow; Glucose,Urine (UA) Negative (Negative); Ketones,Urine Negative (Negative); Leukocyte Esterase,Urine Negative (Negative); Nitrite,Urine Negative (Negative); PH, Urine 5.5 (5.0-8.0); Protein,Urine Trace (Negative); Specific Gravity,Urine >1.050 (1.001-1.035); Urobilinogen,Urine <2.0 mg/dL (<2.0)
[2021-10-24] MEDS: PANTOPRAZOLE 40 MG/10 ML VIAL IV SCH (11:55)
[2021-10-24] MEDS ORDERED: AMPICILLIN-SULBACTAM 3 GM in SODIUM CHLORIDE 0.9% 100 ML IVPB SCH (13:00)
[2021-10-24] MEDS ORDERED: SODIUM CHLORIDE 0.9% 1,000 ML IV ONE (14:37)
--- NOTE | 2021-10-24 14:37 | P.GSCN ---
History of Present Illness Consult date: 10/24/21 History of present illness: CHIEF COMPLAINT: Abdominal pain HISTORY OF PRESENT ILLNESS: The patient is a 86-year-old female with prior history of diverticulitis, colectomy who reports 2 day history of lower abdominal pain that progressed to the upper abdomen. She has nausea. During thanksgiving dinner, yesterday she had minimal appetite. She grew weak. She had brown foul emesis today. She had imaging studies suggesting ileus, hence general surgery is consulted. She reports no passage of flatus today. Her abdominal pain did improve after NG tube, but the tube fell out. She reports having a cardiac stent and seeing Dr. Moore her candy roller. She is active and exercised 3 to 5 times per week. No reports of recent chest pain. ROS: No reports of nausea and vomiting. No bowel movements. No fevers or chills. No new chest pain. No productive sputum PHYSICAL EXAM: VITAL SIGNS: Reviewed CONSTITUTIONAL: Well developed and in no acute distress. Pleasant. EYES: Conjuctivae without sclera icterus. Extraocular movements grossly intact. HEAD, EARS, NOSE, THROAT: Moist buccal mucosa. Head is atraumatic, normocephalic. Hears conversational speech. No nasal drainage. NECK: No thyroidomegaly. RESPIRATORY: Non-labored respirations and equal bilateral excursions. CARDIOVASCULAR: Palpable 2+ radial pulses. ABDOMEN: Distended. No peritonitis. Mild tenderness lower abdomen. MUSCULOSKELETAL: No gross deformity of the lower extremities noted. No c lubbing. No cyanosis. SKIN: Good skin turgor. Well perfused. NEUROLOGIC: Cranial nerves I through XII grossly intact. No focal or lateralizing signs. PSYCH: Appropriate affect. Alert and oriented to person, place and time. CLINICAL LABS: Reviewed. WBC over 21,000. Hgb elevated 16.4 STUDIES: CT of the abdomen and pelvis independently reviewed with moderate descending and sigmoid diverticultosis. Small bowel dilated with decompressed small bowel in the pelvis of likely transition point. This is my independent interpretation. REPORT: CT of the abdomen and pelvis report demonstrates large ovarian cyst with ileus versus distal small bowel obstruction. ASSESSMENT: 1. Small bowel obstruction. 2. Hemoconcentration with dehydration PLAN: 1. IV fluid hydration 2. NG tube decompression 3. May have ice chips. 4. Cardiac assessment recommended prior to surgical intervention. Past Medical History Past Medical History: Coronary Artery Disease (CAD), Diabetes Mellitus, Hyperlipidemia, Hypertension, Myocardial Infarction ([place]), Osteoarthritis (OA), Thyroid Disorder Additional Past Medical History / Comment(s): heart stent 01/04/13 head injur jan 01 2015 was inpt in trauma center in [place]. osteoporosis Last Myocardial Infarction Date:: 01-01-15 History of Any Multi-Drug Resistant Organisms: None Reported Past Surgical History: Bowel Resection, Heart Catheterization With Stent, Tonsillectomy, Tubal Ligation Additional Past Surgical History / Comment(s): cataracts Past Anesthesia/Blood Transfusion Reactions: No Reported Reaction Date of Last Stent Placement:: 01/04/13 Past Psychological History: No Psychological Hx Reported Smoking Status: Never smoker Past Alcohol Use History: None Reported Past Drug Use History: None Reported - Past Family History Daughter(s) Family Medical History: Cancer Additional Family Medical History / Comment(s): breast cancer Medications and Allergies Home Medications Medication Instructions Recorded Confirmed Type Atorvastatin [Lipitor] 40 mg PO HS 04/03/15 10/24/21 History Calcium Carbonate/Vitamin D3 1 tab PO BID 04/03/15 10/24/21 History [Calcium 600-Vit D3 400 Tablet] Gabapentin [Neurontin] 100 mg PO BID@0800,1200 04/03/15 10/24/21 History Multivitamins, Thera [Multivitamin 1 tab PO DAILY 04/26/17 10/24/21 History (formulary)] Gabapentin [Neurontin] 200 mg PO HS 01/15/18 10/24/21 History Glucosam/Brian-Msm1/C/Richie/Bosw 1 tab PO BID 01/15/18 10/24/21 History [Glucosamine-Chondroitin Tablet] lisinopriL [Zestril] 20 mg PO DAILY 01/15/18 10/24/21 History Acetaminophen Tab [Tylenol Tab] 1,000 mg PO HS PRN 10/24/21 10/24/21 History Aspirin EC [Ecotrin Low Dose] 81 mg PO DAILY 10/24/21 10/24/21 History L.acidoph,Paracasei, B.lactis 1 cap PO AC-TID 10/24/21 10/24/21 History [Probiotic] Levothyroxine Sodium [Euthyrox] 112 mcg PO DAILY 10/24/21 10/24/21 History Verapamil [Isoptin] 80 mg PO TID 10/24/21 10/24/21 History Zoledronic Acid/Mannitol-Water 1 dose IV Q365D 10/24/21 10/24/21 History [Reclast 5 mg/100 ml Solution] Allergies Allergy/AdvReac Type Severity Reaction Status Date / Time codeine Allergy Unknown Verified 10/24/21 06:28 Surgical - Exam Vital Signs Temp Pulse Resp BP Pulse Ox 98.0 F 97 20 124/75 98 10/24/21 01:36 10/24/21 01:36 10/24/21 01:36 10/24/21 01:36 10/24/21 01:36 Results - Labs 10/24/21 02:15 10/24/21 02:15 Abnormal Lab Results - Last 24 Hours (Table) 10/24/21 10/24/21 10/24/21 Range/Units 02:15 02:15 07:25 WBC 21.0 H (3.8-10.6) k/uL Hgb 16.4 H (11.4-16.0) gm/dL Hct 50.1 H (34.0-46.0) % Neutrophils # 18.8 H (1.3-7.7) k/uL Lymphocytes # 0.9 L (1.0-4.8) k/uL Carbon Dioxide 20 L (22-30) mmol/L BUN 18 H (7-17) mg/dL Glucose 171 H (74-99) mg/dL Calcium 11.0 H (8.4-10.2) mg/dL AST 42 H (14-36) U/L Ur Specific [place] >1.050 H (1.001-1.035) Urine Protein Trace H (Negative) Diabetes panel 10/24/21 Range/Units 02:15 Sodium 137 (137-145) mmol/L Potassium 4.1 (3.5-5.1) mmol/L Chloride 105 (98-107) mmol/L Carbon Dioxide 20 L (22-30) mmol/L BUN 18 H (7-17) mg/dL Creatinine 0.95 (0.52-1.04) mg/dL Glucose 171 H (74-99) mg/dL Calcium 11.0 H (8.4-10.2) mg/dL AST 42 H (14-36) U/L ALT 26 (4-34) U/L Alkaline Phosphatase 87 (38-126) U/L Total Protein 7.4 (6.3-8.2) g/dL Albumin 4.6 (3.5-5.0) g/dL Calcium panel 10/24/21 Range/Units 02:15 Calcium 11.0 H (8.4-10.2) mg/dL Phosphorus 3.9 (2.5-4.5) mg/dL Albumin 4.6 (3.5-5.0) g/dL Pituitary panel 10/24/21 Range/Units 02:15 Sodium 137 (137-145) mmol/L Potassium 4.1 (3.5-5.1) mmol/L Chloride 105 (98-107) mmol/L Carbon Dioxide 20 L (22-30) mmol/L BUN 18 H (7-17) mg/dL Creatinine 0.95 (0.52-1.04) mg/dL Glucose 171 H (74-99) mg/dL Calcium 11.0 H (8.4-10.2) mg/dL Adrenal panel 10/24/21 Range/Units 02:15 Sodium 137 (137-145) mmol/L Potassium 4.1 (3.5-5.1) mmol/L Chloride 105 (98-107) mmol/L Carbon Dioxide 20 L (22-30) mmol/L BUN 18 H (7-17) mg/dL Creatinine 0.95 (0.52-1.04) mg/dL Glucose 171 H (74-99) mg/dL Calcium 11.0 H (8.4-10.2) mg/dL Total Bilirubin 1.1 (0.2-1.3) mg/dL AST 42 H (14-36) U/L ALT 26 (4-34) U/L Alkaline Phosphatase 87 (38-126) U/L Total Protein 7.4 (6.3-8.2) g/dL Albumin 4.6 (3.5-5.0) g/dL
[2021-10-24] MEDS ORDERED: ACETAMINOPHEN TAB 500 MG TAB PO PRN (14:38)
--- NOTE | 2021-10-24 14:39 | P.HPIM ---
History of Present Illness H&P Date: 10/24/21 Chief Complaint: Abdominal pain, n/v 86-year-old woman with medical history of hypertension, hypothyroidism, diabetes, hyperlipidemia, CAD presented with abdominal pain. Patient says that starting Wednesday she started to experience abdominal pain, which got worse after things giving dinner night. Overnight, she started to experience profound nausea, vomiting as well. Because she could barely keep anything down, patient's daughter insisted the patient come to the hospital for further evaluation. Patient denies fevers, chills, chest pain, palpitations, syncope, presyncope, diarrhea, constipation, numbness/weakness. Patient reports her last stool was Wednesday morning, and describes it as normal volume, soft. In the emergency room patient is noted to be mildly tachycardic to 125, 95% on room air with normal blood pressure. CBC is notable for leukocytosis to 21, chemistries are notable for bicarb of 20, BUN of 18. UA has high specific gravity and trace protein, otherwise unremarkable. Covid was negative. CT of the abdomen/pelvis demonstrates dilated small bowels suggestive of ileus or partial mechanical obstruction without a clear transition point. Patient had NG tube placed in the emergency room and did not have any further episodes of vomiting. Surgery was consulted, medicine will admit patient for further management. Review of Systems All Systems reviewed and pertinent positives and negatives noted in HPI, all other symptoms are negative Past Medical History Past Medical History: Coronary Artery Disease (CAD), Diabetes Mellitus, Hyperlipidemia, Hypertension, Myocardial Infarction ([place]), Osteoarthritis (OA), Thyroid Disorder Additional Past Medical History / Comment(s): heart stent 01/04/13 head injur jan 01 2015 was inpt in trauma center in [place]. osteoporosis Last Myocardial Infarction Date:: 01-01-15 History of Any Multi-Drug Resistant Organisms: None Reported Past Surgical History: Bowel Resection, Heart Catheterization With Stent, Tonsillectomy, Tubal Ligation Additional Past Surgical History / Comment(s): cataracts Past Anesthesia/Blood Transfusion Reactions: No Reported Reaction Date of Last Stent Placement:: 01/04/13 Past Psychological History: No Psychological Hx Reported Smoking Status: Never smoker Past Alcohol Use History: None Reported Past Drug Use History: None Reported - Past Family History Daughter(s) Family Medical History: Cancer Additional Family Medical History / Comment(s): breast cancer Medications and Allergies Home Medications Medication Instructions Recorded Confirmed Type Atorvastatin [Lipitor] 40 mg PO HS 04/03/15 10/24/21 History Calcium Carbonate/Vitamin D3 1 tab PO BID 04/03/15 10/24/21 History [Calcium 600-Vit D3 400 Tablet] Gabapentin [Neurontin] 100 mg PO BID@0800,1200 04/03/15 10/24/21 History Multivitamins, Thera [Multivitamin 1 tab PO DAILY 04/26/17 10/24/21 History (formulary)] Gabapentin [Neurontin] 200 mg PO HS 01/15/18 10/24/21 History Glucosam/Brian-Msm1/C/Richie/Bosw 1 tab PO BID 01/15/18 10/24/21 History [Glucosamine-Chondroitin Tablet] lisinopriL [Zestril] 20 mg PO DAILY 01/15/18 10/24/21 History Acetaminophen Tab [Tylenol Tab] 1,000 mg PO HS PRN 10/24/21 10/24/21 History Aspirin EC [Ecotrin Low Dose] 81 mg PO DAILY 10/24/21 10/24/21 History L.acidoph,Paracasei, B.lactis 1 cap PO AC-TID 10/24/21 10/24/21 History [Probiotic] Levothyroxine Sodium [Euthyrox] 112 mcg PO DAILY 10/24/21 10/24/21 History Verapamil [Isoptin] 80 mg PO TID 10/24/21 10/24/21 History Zoledronic Acid/Mannitol-Water 1 dose IV Q365D 10/24/21 10/24/21 History [Reclast 5 mg/100 ml Solution] Allergies Allergy/AdvReac Type Severity Reaction Status Date / Time codeine Allergy Unknown Verified 10/24/21 06:28 Physical Exam Osteopathic Statement: *. No significant issues noted on an osteopathic structural exam other than those noted in the History and Physical/Consult. Vitals: Vital Signs Temp Pulse Pulse Resp BP BP Pulse Ox 10/24/21 09:00 97.5 F L 125 H 16 133/75 95 10/24/21 08:00 16 10/24/21 07:29 93 18 147/79 97 10/24/21 05:01 90 18 100/58 94 L 10/24/21 03:30 93 18 127/68 95 10/24/21 01:36 98.0 F 97 20 124/75 98 Intake and Output 10/23/21 10/24/21 10/24/21 22:59 06:59 14:59 Other: Weight 51.256 kg 51.256 kg Gen: awake, alert HEENT: normocephalic, atraumatic, good hearing acuity, moist mucous membranes Resp: good air exchange, breathing comfortably with no accessory muscle use, clear to auscultation bilaterally CVS: good distal perfusion x 4, regular rate and rhythm without murmurs GI: Left upper quadrant tenderness to palpation, soft, diminished bowel sounds : no SPT, no CVAT, rodriguez catheter not present MSK: no pitting edema, no clubbing Neuro: non-focal, moving all extremities Psych: cooperative, euthymic mood Results CBC & Chem 7: 10/24/21 02:15 10/24/21 02:15 Labs: Abnormal Lab Results - Last 24 Hours (Table) 10/24/21 10/24/21 10/24/21 Range/Units 02:15 02:15 07:25 WBC 21.0 H (3.8-10.6) k/uL Hgb 16.4 H (11.4-16.0) gm/dL Hct 50.1 H (34.0-46.0) % Neutrophils # 18.8 H (1.3-7.7) k/uL Lymphocytes # 0.9 L (1.0-4.8) k/uL Carbon Dioxide 20 L (22-30) mmol/L BUN 18 H (7-17) mg/dL Glucose 171 H (74-99) mg/dL Calcium 11.0 H (8.4-10.2) mg/dL AST 42 H (14-36) U/L Ur Specific [place] >1.050 H (1.001-1.035) Urine Protein Trace H (Negative) Thrombosis Risk Factor Assmnt - Choose All That Apply Any of the Below Risk Factors Present?: No Other Risk Factors: No Other congenital or acquired thrombophilia - If yes, enter type in comment: No Thrombosis Risk Factor Assessment Level: Very Low Risk Assessment and Plan Assessment: Small bowel obstruction -Admit inpatient, telemetry -Surgery consult -NG tube -Nothing by mouth -Pain control, nausea control -IV fluids -PPI IV Hypertension Hyperlipidemia Diabetes type 2 Hypothyroidism CAD -Home medications reviewed and reconciled -Low-dose sliding scale insulin Patient is a full code
[2021-10-24] MEDS ORDERED: [UNRECOGNIZED DRUG - OTHER] IV SCH (14:45)
[2021-10-24] MEDS ORDERED: ZOLEDRONIC ACID IV SCH (14:45)
[2021-10-24] MEDS: LACTOBACILLUS ACIDOPH & BULGAR 1 EACH PACKET PO SCH (16:56)
[2021-10-24] MEDS: VERAPAMIL 80 MG TAB PO SCH ×2 (16:56→20:40)
[2021-10-24] MEDS: CHOLECALCIFEROL 10 MCG (400 IU) TABLET PO SCH (20:37)
[2021-10-24] MEDS: CALCIUM CARBONATE 500 MG CHEWABLE PO SCH (20:37)
[2021-10-24] MEDS: ATORVASTATIN 40 MG TAB PO SCH (20:38)
[2021-10-24] MEDS: GABAPENTIN 100 MG CAP PO SCH (20:38)
[2021-10-24] MEDS ORDERED: NON FORMULARY DRUG (Glucosam/Chon-Msm1/C/Mang/Bosw [Glucosamine-Chondroitin Tablet] 1 EACH PO SCH (21:00)
[2021-10-25] MEDS: SODIUM CHLORIDE 0.9% 1,000 ML IV SCH ×2 (01:54→14:59)
[2021-10-25] MEDS: LEVOTHYROXINE 112 MCG TAB PO SCH ×2 (01:55→11:35)
[2021-10-25 07:06] LABS: Glucose,Whole Blood 76 mg/dL (75-99)
[2021-10-25] MEDS: INSULIN ASPART (NovoLOG) 100 UNIT/ML VIAL SQ SCH ×3 (07:19→17:43)
--- NOTE | 2021-10-25 11:20 | P.PN ---
Subjective Progress Note Date: 10/25/21 CHIEF COMPLAINT: Abdominal pain HISTORY OF PRESENT ILLNESS: The patient is a 86-year-old female admitted small bowel obstruction. She had a bowel movement this morning. Her abdominal pain is resolved. She reports some passage of flatus. NG tube without documented output. ROS: No reports of nausea and vomiting. No fevers or chills. No new chest pain. PHYSICAL EXAM: VITAL SIGNS: Reviewed CONSTITUTIONAL: Well developed and in no acute distress. Pleasant. EYES: Conjuctivae without sclera icterus. Extraocular movements grossly intact. HEAD, EARS, NOSE, THROAT: Moist buccal mucosa. Head is atraumatic, normocephalic. Hears conversational speech. No nasal drainage. NG tube with 30 mL and at 45 mL, not completely in stomach NECK: No thyroidomegaly. RESPIRATORY: Non-labored respirations and equal bilateral excursions. CARDIOVASCULAR: Palpable 2+ radial pulses. ABDOMEN: No peritonitis. MUSCULOSKELETAL: No gross deformity of the lower extremities noted. No clubbing. No cyanosis. SKIN: Good skin turgor. Well perfused. NEUROLOGIC: Cranial nerves II through XII grossly intact. No focal or lateralizing signs. PSYCH: Appropriate affect. Alert and oriented to person, place and time. CLINICAL LABS: Reviewed. Pending. ASSESSMENT: 1. Small bowel obstruction. 2. Hemoconcentration with dehydration PLAN: 1. Abdorminal x-ray today 2. May start diet pending results of abdominal xray. Objective - Vital Signs Vital signs: Vital Signs Temp 98.2 F 10/25/21 07:00 Pulse 74 10/25/21 07:00 Resp 16 10/25/21 07:00 BP 115/51 10/25/21 07:00 Pulse Ox 96 10/25/21 07:00 Intake & Output 10/24/21 10/25/21 10/25/21 18:59 06:59 18:59 Output Total 0 300 Balance 0 -300 Weight 51.256 kg Output: Urine 300 Emesis 0 Other: # Voids 1 1 # Bowel Movements 1 - Labs CBC & Chem 7: 10/24/21 02:15 10/24/21 02:15 Labs: Microbiology - Last 24 Hours (Table) 10/24/21 04:50 Blood Culture - Preliminary Blood No Growth after 24 hours 10/24/21 04:40 Blood Culture - Preliminary Blood No Growth after 24 hours Assessment and Plan (1) Small bowel obstruction Current Visit: Yes Status: Acute Code(s): K56.609 - UNSP INTESTNL OBST, UNSP TO PARTIAL VERSUS COMPLETE OBST SNOMED Code(s): 689054647 (2) Dehydration Current Visit: Yes Status: Acute Code(s): E86.0 - DEHYDRATION SNOMED Code(s): 29105023 (3) Abdominal pain Current Visit: Yes Status: Acute Code(s): R10.9 - UNSPECIFIED ABDOMINAL PAIN SNOMED Code(s): 07271438 (4) Nausea & vomiting Current Visit: Yes Status: Acute Code(s): R11.2 - NAUSEA WITH VOMITING, UNSPECIFIED SNOMED Code(s): 99773694
[2021-10-25] MEDS: VERAPAMIL 80 MG TAB PO SCH ×4 (11:35→19:50)
[2021-10-25] MEDS: CHOLECALCIFEROL 10 MCG (400 IU) TABLET PO SCH ×3 (11:35→19:50)
[2021-10-25] MEDS: lisinopriL 20 MG TAB PO SCH ×2 (11:35→11:50)
[2021-10-25] MEDS: PANTOPRAZOLE 40 MG/10 ML VIAL IV SCH (11:35)
[2021-10-25] MEDS: CALCIUM CARBONATE 500 MG CHEWABLE PO SCH ×2 (11:36→19:49)
[2021-10-25] MEDS: MULTIVITAMINS, THERA 1 EACH TAB PO SCH (11:36)
[2021-10-25] MEDS: GABAPENTIN 100 MG CAP PO SCH ×3 (11:36→19:50)
[2021-10-25 11:37] LABS: African American GFR (CKD) 91.6 (60.0-200.0); Albumin 3.2 g/dL (3.8-4.9); Anion Gap 10.5 mmol/L (10.00-18.00); BUN/Creat Ratio 18.29 Ratio (12.00-20.00); Blood Urea Nitrogen 12.8 mg/dL (9.0-27.0); Carbon Dioxide 18.5 mmol/L (20.0-27.5); Globulin 1.6 g/dL (1.6-3.3); Magnesium 1.9 mg/dL (1.5-2.4); Phosphorus 2.1 mg/dL (2.4-5.1); Total Bilirubin 0.7 mg/dL (0.30-1.20); Total Protein 4.8 g/dL (6.2-8.2)
[2021-10-25] MEDS: LACTOBACILLUS ACIDOPH & BULGAR 1 EACH PACKET PO SCH ×3 (11:38→19:09)
[2021-10-25 11:40] LABS: Basophils # (A) 0.05 X 10*3/uL (0.00-0.10); Basophils % (A) 0.5 %; Eosinophils # (A) 0.11 X 10*3/uL (0.04-0.35); HCT 41.6 % (37.2-46.3); HGB 12.7 g/dL (12.0-15.0); Lymphocytes # (A) 0.86 X 10*3/uL (0.90-5.00); Lymphocytes % (A) 7.9 %; MCH 30.3 pg (27.0-32.0); MCHC 30.5 g/dL (32.0-37.0); MCV 99.3 fL (80.0-97.0); Mean Platelet Volume 9.7 fL (9.5-12.2); Monocytes # (A) 0.73 X 10*3/uL (0.20-1.00); Monocytes % (A) 6.7 %; Neutrophils # (A) 9.09 X 10*3/uL (1.80-7.70); Neutrophils % (A) 83.4 %; Platelet Count 217 X 10*3/uL (140-440); RBC 4.19 X 10*6/uL (4.10-5.20); WBC 10.89 X 10*3/uL (4.50-10.00)
--- NOTE | 2021-10-25 11:46 | P.PN ---
Subjective Progress Note Date: 10/25/21 Patient reports passing gas, no further nausea, pain has resolved. Reports having an appetite and feeling very hungry. Objective - Vital Signs Vital signs: Vital Signs Temp 98.2 F 10/25/21 07:00 Pulse 74 10/25/21 07:00 Resp 16 10/25/21 07:00 BP 115/51 10/25/21 07:00 Pulse Ox 96 10/25/21 07:00 Intake & Output 10/24/21 10/25/21 10/25/21 18:59 06:59 18:59 Output Total 0 300 Balance 0 -300 Weight 51.256 kg Output: Urine 300 Emesis 0 Other: # Voids 1 1 # Bowel Movements 1 - Exam Gen: awake, alert HEENT: normocephalic, atraumatic, good hearing acuity, moist mucous membranes Resp: good air exchange, breathing comfortably with no accessory muscle use, clear to auscultation bilaterally CVS: good distal perfusion x 4, regular rate and rhythm without murmurs GI: Left upper quadrant tenderness to palpation, soft, diminished bowel sounds : no SPT, no CVAT, rodriguez catheter not present MSK: no pitting edema, no clubbing Neuro: non-focal, moving all extremities Psych: cooperative, euthymic mood - Labs CBC & Chem 7: 10/25/21 07:04 10/25/21 07:04 Labs: Abnormal Lab Results - Last 24 Hours (Table) 10/25/21 10/25/21 Range/Units 07:04 07:04 WBC 10.89 H (4.50-10.00) X 10*3/uL MCV 99.3 H (80.0-97.0) fL MCHC 30.5 L (32.0-37.0) g/dL Immature Gran # 0.05 H (0.00-0.04) X 10*3/uL Neutrophils # 9.09 H (1.80-7.70) X 10*3/uL Lymphocytes # 0.86 L (0.90-5.00) X 10*3/uL Chloride 113 H (96-109) mmol/L Carbon Dioxide 18.5 L (20.0-27.5) mmol/L Calcium 8.0 L (8.7-10.3) mg/dL Phosphorus 2.1 L (2.4-5.1) mg/dL AST 80 H (13-35) U/L ALT 96 H (8-44) U/L Total Protein 4.8 L (6.2-8.2) g/dL Albumin 3.2 L (3.8-4.9) g/dL Microbiology - Last 24 Hours (Table) 10/24/21 04:50 Blood Culture - Preliminary Blood No Growth after 24 hours 10/24/21 04:40 Blood Culture - Preliminary Blood No Growth after 24 hours Assessment and Plan Assessment: Small bowel obstruction -Admit inpatient, telemetry -Surgery consult -Clamp NG tube today -Advance to clear liquids -Pain control, nausea control -IV fluids -PPI IV Hypertension Hyperlipidemia Diabetes type 2 Hypothyroidism CAD -Home medications reviewed and reconciled -Low-dose sliding scale insulin Patient is a full code
[2021-10-25] MEDS: ASPIRIN 81 MG PO SCH (11:50)
[2021-10-25 12:09] LABS: Glucose,Whole Blood 65 mg/dL (75-99)
--- NOTE | 2021-10-25 12:15 | XR ---
EXAMINATION TYPE: XR abdomen 2V DATE OF EXAM: 10/25/2021 CLINICAL HISTORY: Pain and ileus. Nasogastric tube placement. TECHNIQUE: Supine and upright views of the abdomen are obtained. COMPARISON: CT abdomen and pelvis from yesterday FINDINGS: New nasogastric tube terminates at the diaphragmatic hiatus level. Advise advancing. Gas pr ominent small bowel loops in the lower abdomen and upper pelvis redemonstrated. Prominent spur right L2-L3 level. Surgical clips presacral region. Cholecystectomy clips. Cardiomegaly redemonstrated. Oss eous structures demineralized. IMPRESSION: Advise advancing nasogastric tube. Overall nonspecific bowel gas pattern redemonstrated, suspect stable partial mid to distal small bowel obstruction
[2021-10-25 12:31] LABS: Glucose,Whole Blood 65 mg/dL (75-99)
[2021-10-25 12:44] LABS: Glucose,Whole Blood 77 mg/dL (75-99)
--- NOTE | 2021-10-25 14:15 | P.PN ---
Progress Note - Text Progress Note Date: 10/25/21 Re-evaluated patient after abdominal x-ray. NG tube needs to be advanced. Patient reports multiple loose stools. Options for removing tube with start of liquids versus advancement of tube reviewed. Will advance tube in correct position and repeat films in the morning. IVF to be adjusted.
[2021-10-25] MEDS: DEXTROSE 5%-0.9% NACL 1,000 ML IV SCH (15:03)
--- NOTE | 2021-10-25 15:25 | XR ---
EXAMINATION TYPE: XR chest 1V confirm line [facility] DATE OF EXAM: 10/25/2021 COMPARISON: 01/15/2018 HISTORY: Check tube placement TECHNIQUE: Single view FINDINGS: There is some blunting of the costophrenic angles. There is no gross heart failure. Heart a ppears enlarged. There is nasogastric tube in the stomach. There are chest leads. IMPRESSION: There are some new mild infiltrates and pleural reaction at the lung bases compared to ol d exam. No heart failure seen. NG tube is in the stomach.
[2021-10-25 17:02] LABS: Glucose,Whole Blood 81 mg/dL (75-99)
[2021-10-25] MEDS: ATORVASTATIN 40 MG TAB PO SCH (19:49)
[2021-10-25 20:57] LABS: Glucose,Whole Blood 94 mg/dL (75-99)
[2021-10-26] MEDS: DEXTROSE 5%-0.9% NACL 1,000 ML IV SCH (01:47)
[2021-10-26 08:11] LABS: Glucose,Whole Blood 112 mg/dL (75-99)
[2021-10-26 08:21] VITALS: RESP 16
[2021-10-26 09:42] LABS: Basophils # (A) 0.03 X 10*3/uL (0.00-0.10); Basophils % (A) 0.3 %; Eosinophils # (A) 0.11 X 10*3/uL (0.04-0.35); Eosinophils % (A) 1.2 %; HCT 38.7 % (37.2-46.3); HGB 12.3 g/dL (12.0-15.0); Lymphocytes # (A) 0.99 X 10*3/uL (0.90-5.00); Lymphocytes % (A) 10.4 %; MCH 29.9 pg (27.0-32.0); MCHC 31.8 g/dL (32.0-37.0); MCV 93.9 fL (80.0-97.0); Mean Platelet Volume 9.4 fL (9.5-12.2); Monocytes # (A) 0.64 X 10*3/uL (0.20-1.00); Monocytes % (A) 6.7 %; Neutrophils # (A) 7.69 X 10*3/uL (1.80-7.70); Platelet Count 230 X 10*3/uL (140-440); RBC 4.12 X 10*6/uL (4.10-5.20); RDW 12.6 % (11.5-14.5)
[2021-10-26] MEDS: PANTOPRAZOLE 40 MG/10 ML VIAL IV SCH (09:51)
[2021-10-26] MEDS: lisinopriL 20 MG TAB PO SCH (09:51)
[2021-10-26] MEDS: CALCIUM CARBONATE 500 MG CHEWABLE PO SCH (09:51)
[2021-10-26] MEDS: ASPIRIN 81 MG PO SCH (09:51)
[2021-10-26] MEDS: GABAPENTIN 100 MG CAP PO SCH ×2 (09:51→14:05)
[2021-10-26] MEDS: LACTOBACILLUS ACIDOPH & BULGAR 1 EACH PACKET PO SCH ×2 (09:52→14:20)
[2021-10-26] MEDS: VERAPAMIL 80 MG TAB PO SCH (09:52)
[2021-10-26] MEDS: LEVOTHYROXINE 112 MCG TAB PO SCH (09:52)
[2021-10-26] MEDS: CHOLECALCIFEROL 10 MCG (400 IU) TABLET PO SCH (09:52)
[2021-10-26] MEDS: INSULIN ASPART (NovoLOG) 100 UNIT/ML VIAL SQ SCH ×2 (09:52→14:05)
[2021-10-26] MEDS: MULTIVITAMINS, THERA 1 EACH TAB PO SCH (09:52)
[2021-10-26 10:39] LABS: Magnesium 1.9 mg/dL (1.5-2.4)
[2021-10-26 10:42] LABS: African American GFR (CKD) 96.9 (60.0-200.0); Anion Gap 8.3 mmol/L (10.00-18.00); BUN/Creat Ratio 10.51 Ratio (12.00-20.00); Blood Urea Nitrogen 6.2 mg/dL (9.0-27.0); Calcium 8.1 mg/dL (8.7-10.3); Carbon Dioxide 20.8 mmol/L (20.0-27.5); Non-African American GFR(CKD) 83.6 (60.0-200.0); Potassium 3.8 mmol/L (3.5-5.5)
[2021-10-26 12:59] LABS: Glucose,Whole Blood 163 mg/dL (75-99)
--- NOTE | 2021-10-26 13:46 | P.PN ---
Subjective Progress Note Date: 10/26/21 CHIEF COMPLAINT: Abdominal pain HISTORY OF PRESENT ILLNESS: The patient is a 86-year-old female admitted small bowel obstruction. She is tolerating regular diet. ROS: No reports of nausea and vomiting. No fevers or chills. No new chest pain. PHYSICAL EXAM: VITAL SIGNS: Reviewed CONSTITUTIONAL: Well developed and in no acute distress. Pleasant. EYES: Conjuctivae without sclera icterus. Extraocular movements grossly intact. HEAD, EARS, NOSE, THROAT: Moist buccal mucosa. Head is atraumatic, normocephalic. Hears conversational speech. No nasal drainage. NG tube with 30 mL and at 45 mL, not completely in stomach NECK: No thyroidomegaly. RESPIRATORY: Non-labored respirations and equal bilateral excursions. CARDIOVASCULAR: Palpable 2+ radial pulses. ABDOMEN: Non tender. MUSCULOSKELETAL: No gross deformity of the lower extremities noted. No clubbing. No cyanosis. SKIN: Good skin turgor. Well perfused. NEUROLOGIC: Cranial nerves II through XII grossly intact. No focal or l ateralizing signs. PSYCH: Appropriate affect. Alert and oriented to person, place and time. CLINICAL LABS: Reviewed. WBC normal 9.5 and Hgb 12.3. STUDIES: Abdominal xray reviewed independently with non-specific bowel gas pattern. ASSESSMENT: 1. Small bowel obstruction. PLAN: 1. She is tolerating diet. 2. Stable for discharge from a surgical standpoint when medically stable Objective - Vital Signs Vital signs: Vital Signs Temp 98 F 10/26/21 07:00 Pulse 76 10/26/21 07:00 Resp 16 10/26/21 07:00 BP 175/76 10/26/21 07:00 Pulse Ox 97 10/26/21 07:00 Intake & Output 10/25/21 10/26/21 10/26/21 18:59 06:59 18:59 Intake Total 90 Output Total 300 935 300 Balance -210 -935 -300 Intake: Oral 90 Output: Gastric Drainage 10 Urine 300 925 300 Other: # Voids 1 1 1 # Bowel Movements 1 1 - Labs CBC & Chem 7: 10/26/21 05:58 10/26/21 05:58 Labs: Abnormal Lab Results - Last 24 Hours (Table) 10/26/21 10/26/21 10/26/21 Range/Units 05:58 05:58 07:33 MCHC 31.8 L (32.0-37.0) g/dL MPV 9.4 L (9.5-12.2) fL Chloride 114 H (96-109) mmol/L Anion Gap 8.30 L (10.00-18.00) mmol/L BUN 6.2 L (9.0-27.0) mg/dL BUN/Creatinine Ratio 10.51 L (12.00-20.00) Ratio Glucose 127 H (70-110) mg/dL POC Glucose (mg/dL) 112 H (75-99) mg/dL Calcium 8.1 L (8.7-10.3) mg/dL 10/26/21 Range/Units 12:56 MCHC (32.0-37.0) g/dL MPV (9.5-12.2) fL Chloride (96-109) mmol/L Anion Gap (10.00-18.00) mmol/L BUN (9.0-27.0) mg/dL BUN/Creatinine Ratio (12.00-20.00) Ratio Glucose (70-110) mg/dL POC Glucose (mg/dL) 163 H (75-99) mg/dL Calcium (8.7-10.3) mg/dL Microbiology - Last 24 Hours (Table) 10/24/21 04:50 Blood Culture - Preliminary Blood No Growth after 48 hours 10/24/21 04:40 Blood Culture - Preliminary Blood No Growth after 48 hours Assessment and Plan (1) Small bowel obstruction Current Visit: Yes Status: Acute Code(s): K56.609 - UNSP INTESTNL OBST, UNSP TO PARTIAL VERSUS COMPLETE OBST SNOMED Code(s): 899668895 (2) Dehydration Current Visit: Yes Status: Acute Code(s): E86.0 - DEHYDRATION SNOMED Code(s): 63970887 (3) Abdominal pain Current Visit: Yes Status: Acute Code(s): R10.9 - UNSPECIFIED ABDOMINAL PAIN SNOMED Code(s): 53756158 (4) Nausea & vomiting Current Visit: Yes Status: Acute Code(s): R11.2 - NAUSEA WITH VOMITING, UNSPECIFIED SNOMED Code(s): 63322665
--- NOTE | 2021-10-26 14:15 | XR ---
EXAMINATION TYPE: XR abdomen 2V DATE OF EXAM: 10/26/2021 COMPARISON: 10/25/2021 HISTORY: 86 years Female. STUDY INDICATION GIVEN: abdominal pain . TECHNIQUE: Upright and supine abdominal radiographs IMPRESSION: Enteric tube courses into the stomach. No free abdominal air seen. Nonobstructive bowel gas pattern. Surgical changes seen in the right upper quadrant. Vascular calcification seen in the left upper quadrant. Mild scoliosis of the spine with osteopenia and degenerative changes. 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 Mild right inferior aspect of the sacroiliac joint sclerotic changes. Lung bases opacities greater on the left may be on the basis of infection or atelectasis, please refe r to chest radiograph dated 10/25/2021.
[2021-10-26 14:18] VITALS: BP 161/84; PULSE 82; TEMP 99.2
--- NOTE | 2021-10-26 17:10 | P.DS ---
Providers Date of admission: 10/24/21 03:51 Expected date of discharge: 10/26/21 Attending physician: Ghassan Boyce MD Consults: 10/24/21 03:51 Consult Physician Routine Consulting Provider: Aaliyah Aquino Consult Reason/Comments: ileus Do you want consulting provider notified?: Yes Primary care physician: [facility] Course: 86-year-old woman with medical history of hypertension, hypothyroidism, diabetes, hyperlipidemia, CAD presented with abdominal pain. XR Abd demonstrated bowel gas pattern c/w ileus vs partial SBO. Small bowel obstruction -Admitted inpatient, telemetry. Surgery consulted. NGT placed. Pt improved quickly, and by day 2 of hospitalization she was passing gas, abd pain resolved, and reported appetite. Repeat XR however continued to show ileus type pattern, so diet was deferred for one additional day. Today, patient tolerated regular diet after removal of NGT, and continued to pass gas. She was discharged with PCP f/u. Hypertension Hyperlipidemia Diabetes type 2 Hypothyroidism CAD -Home medications reviewed and reconciled, no changes made on discharge I spent 32 minutes coordinating this complex discharge. Assessment: Gen: awake, alert HEENT: normocephalic, atraumatic, good hearing acuity, moist mucous membranes Resp: good air exchange, breathing comfortably with no accessory muscle use, clear to auscultation bilaterally CVS: good distal perfusion x 4, regular rate and rhythm without murmurs GI: Left upper quadrant tenderness to palpation, soft, diminished bowel sounds : no SPT, no CVAT, rodriguez catheter not present MSK: no pitting edema, no clubbing Neuro: non-focal, moving all extremities Psych: cooperative, euthymic mood Patient Condition at Discharge: Good Plan - Discharge Summary Discharge Rx Participant: No New Discharge Prescriptions: Continue Atorvastatin [Lipitor] 40 mg PO HS Gabapentin [Neurontin] 100 mg PO BID@0800,1200 Calcium Carbonate/Vitamin D3 [Calcium 600-Vit D3 400 Tablet] 1 tab PO BID Multivitamins, Thera [Multivitamin (formulary)] 1 tab PO DAILY lisinopriL [Zestril] 20 mg PO DAILY Glucosam/Brian-Msm1/C/Richie/Bosw [Glucosamine-Chondroitin Tablet] 1 tab PO BID Gabapentin [Neurontin] 200 mg PO HS L.acidoph,Paracasei, B.lactis [Probiotic] 1 cap PO AC-TID Aspirin EC [Ecotrin Low Dose] 81 mg PO DAILY Acetaminophen Tab [Tylenol] 1,000 mg PO HS PRN PRN Reason: Pain Verapamil [Isoptin] 80 mg PO TID Zoledronic Acid/Mannitol-Water [Reclast 5 mg/100 ml Solution] 1 dose IV Q365D Levothyroxine Sodium [Euthyrox] 112 mcg PO DAILY Discharge Medication List Atorvastatin [Lipitor] 40 mg PO HS 04/03/15 [History] Calcium Carbonate/Vitamin D3 [Calcium 600-Vit D3 400 Tablet] 1 tab PO BID 04/03/15 [History] Gabapentin [Neurontin] 100 mg PO BID@0800,1200 04/03/15 [History] Multivitamins, Thera [Multivitamin (formulary)] 1 tab PO DAILY 04/26/17 [History] Gabapentin [Neurontin] 200 mg PO HS 01/15/18 [History] Glucosam/Brian-Msm1/C/Richie/Bosw [Glucosamine-Chondroitin Tablet] 1 tab PO BID 01/15/18 [History] lisinopriL [Zestril] 20 mg PO DAILY 01/15/18 [History] Acetaminophen Tab [Tylenol] 1,000 mg PO HS PRN 10/24/21 [History] Aspirin EC [Ecotrin Low Dose] 81 mg PO DAILY 10/24/21 [History] L.acidoph,Paracasei, B.lactis [Probiotic] 1 cap PO AC-TID 10/24/21 [History] Levothyroxine Sodium [Euthyrox] 112 mcg PO DAILY 10/24/21 [History] Verapamil [Isoptin] 80 mg PO TID 10/24/21 [History] Zoledronic Acid/Mannitol-Water [Reclast 5 mg/100 ml Solution] 1 dose IV Q365D 10/24/21 [History] Follow up Appointment(s)/Referral(s): Juan Farrell MD [Primary Care Provider] - 1-2 days (Please call the office during normal business hours on Wednesday to schedule a follow-up appointment.) Discharge Disposition: HOME SELF-CARE
== END 2021-10-26 15:43 | disposition home or self-care (01) | DRG 390 ==
LOC: EC 01:34 → 6NMEDSUR 03:51
PROVIDERS: ADMIT Internal Medicine; ATTEND Internal Medicine
PROC: 0D9670Z Drainage of Stomach with Drainage Device, Via Natural or Artificial Opening (ICD-10-PCS; principal; 2021-10-24)
DX: K56.600 Partial intestinal obstruction, unspecified as to cause (principal); K56.7 Ileus, unspecified; D72.829 Elevated white blood cell count, unspecified; E03.9 Hypothyroidism, unspecified; E11.9 Type 2 diabetes mellitus without complications; E78.5 Hyperlipidemia, unspecified; E86.0 Dehydration; I10 Essential (primary) hypertension; I25.10 Atherosclerotic heart disease of native coronary artery without angina pectoris; I25.2 Old myocardial infarction; M81.0 Age-related osteoporosis without current pathological fracture; Z20.822 Contact with and (suspected) exposure to COVID-19; Z79.82 Long term (current) use of aspirin; Z79.890 Hormone replacement therapy; Z79.899 Other long term (current) drug therapy; Z80.3 Family history of malignant neoplasm of breast; Z95.5 Presence of coronary angioplasty implant and graft; Z88.5 Allergy status to narcotic agent
CPT/HCPCS: 36415; 74019; 74177; 80048; 80053; 81003; 83605; 83690; 83735; 83880; 84100; 84484; 85025; 85610; 85730; 87040; 87635; 93005; 96361; 96374; 96375; 99285

== ENCOUNTER → 2021-11-19 | Outpatient (CLI) | payer MEDICARE ==
--- NOTE | 2021-11-20 07:57 | US ---
EXAMINATION TYPE: US pelvis complete transvag plus Doppler DATE OF EXAM: 11/19/2021 COMPARISON: CT A&P 10/24/2021 CLINICAL HISTORY: 86-year-old female N83.209 OVARIAN CYST. Right ovarian cyst seen in prior CT exams. TECHNIQUE: Transvaginal (TV) and Transabdominal (TA) . Color Doppler and spectral waveform analysis of the right ovarian arteries and veins. FINDINGS: EXAM MEASUREMENTS: Uterus: 4.5 x 2.3 x 3.6 cm Endometrial Stripe: Not well delineated for measurement Right Ovary: 9.8 x 5.6 x 8.2 cm Left Ovary: Not seen 1. Uterus: Appears heterogenous 2. Endometrium: Appears complex and heterogenous. Not well delineated. Possibly with internal cystic change. On transverse images, there may be thickening up to 9 mm. 3. Right Ovary: There is a simple cyst measuring 8.8 x 5.2 x 6.3 cm, last seen 10/24/[address] latisha uring 9.0 x 5.5 cm. 4. Left Ovary: Obscured by overlying bowel gas Spectral, color and waveform doppler imaging shows good arterial and venous flow within the right o vary; there is no evidence for right-sided ovarian torsion. 5. Bilateral Adnexa: Obscured by overlying bowel gas 6. Posterior cul-de-sac: wnl Quality Systems Engineer notes: Difficult exam due to patient age and slight intolerance to the transvaginal probe . Images were not able to be obtained using the transabdominal approach due to excessive bowel and tom wel gas. IMPRESSION: 1. Endometrial stripe not well delineated. The region of the endometrium appears heterogeneous with s ome small cystic change and on transverse images, possible thickening up to 9 mm. Correlate for any p ostmenopausal bleeding. Findings may reflect endometrial hyperplasia. Recommend more details assessme nt of the junctional anatomy with female pelvic MRI. 2. Simple cyst of the right ovary measuring 8.8 cm, unchanged from the CT of 10/24/2021. Consensus gu idelines recommend annual ultrasound surveillance. No sonographic evidence for right ovarian torsion. 3. Unable to visualize the left ovary.
== END | disposition home or self-care (01) ==
LOC: RADUSWWP 15:27
PROVIDERS: ATTEND Family Medicine
DX: N83.291 Other ovarian cyst, right side (principal); R93.89 Abnormal findings on diagnostic imaging of other specified body structures
CPT/HCPCS: 76830; 76856

== ENCOUNTER → 2021-12-10 | Outpatient (CLI) | payer MEDICARE ==
--- NOTE | 2021-12-10 10:45 | BD ---
EXAMINATION TYPE: Axial Bone Density DATE OF EXAM: 12/10/2021 COMPARISON: Prior DEXA bone scan 2019 CLINICAL HISTORY: Postmenopausal female. Disorder of bone. Height: 58 Weight: 111.0 FRAX RISK QUESTIONS: Alcohol (3 or more units per day): no Family History (Parent hip fracture): no Glucocorticoids (More than 3mos): no (Ex: prednisone, prednisolone, methylprednisolone, dexamethasone, and hydrocortisone). History of Fracture in Adulthood: no Secondary Osteoporosis: 1. Type 1 Diabetes: no 2. Hyperthyroidism: no 3. Menopause before 45: no 4. Malnutrition: no 5. Chronic liver disease: no Rheumatoid Arthritis: no Current Tobacco Use: no RISK FACTORS HISTORY OF: Surgery to Spine/Hip(right/left)/Wrist (right/left): no Family History of Osteoporosis: no Active: yes Diet low in dairy products/other sources of calcium: yes Postmenopausal woman: yes Lost more than 2 inches in height since high school: yes MEDICATIONS: Thyroid Medications: thyroid How Lon years Additional History: EXAM MEASUREMENTS: Bone mineral densitometry was performed using the [employer] System. Bone mineral density as measured about the Lumbar spine is: ----- L1-L4(G/cm2): 1.142 T Score Values are as follows: ----- L2: 0.6 ----- L3: 0.2 ----- L4: -0.3 ----- L1-L4: -0.3 Bone mineral density has: decreased -1.5 % since study of: 10.03.2019 Bone mineral density about the R hip (g/cm2): 0.989 Bone mineral density about the L hip (g/cm2): 0.835 T Score values are as follows: -----R Neck:-0.4 -----L Neck: -1.5 -----R Total: -1.8 -----L Total: -1.6 Bone mineral density has: decreased -5.6 % since study of: 10.03.2019 IMPRESSION: Osteopenia (T Score between -2.5 and -1) remains present. There is slightly increased risk of fracture and the patient may be considered for treatment. Re-Screen 2-5 years. NOTE: T-SCORE=SD OF THE YOUNG ADULT MEAN.
== END | disposition home or self-care (01) ==
LOC: RADBDWWP 07:47
PROVIDERS: ATTEND Family Medicine
DX: M85.89 Other specified disorders of bone density and structure, multiple sites (principal); Z78.0 Asymptomatic menopausal state
CPT/HCPCS: 77080

== ENCOUNTER → 2022-08-26 | Outpatient (CLI) | payer MEDICARE ==
[2022-08-26 11:07] LABS: Basophils # (A) 0.08 X 10*3/uL (0.00-0.10); Basophils % (A) 0.8 %; Eosinophils # (A) 0.24 X 10*3/uL (0.04-0.35); Eosinophils % (A) 2.5 %; HCT 43.4 % (37.2-46.3); Immature Grans, Automated 0.4 %; Lymphocytes # (A) 1.63 X 10*3/uL (0.90-5.00); Lymphocytes % (A) 17.1 %; MCHC 32.3 g/dL (32.0-37.0); MCV 99.1 fL (80.0-97.0); Mean Platelet Volume 9.7 fL (9.5-12.2); Monocytes # (A) 0.69 X 10*3/uL (0.20-1.00); Monocytes % (A) 7.2 %; NRBC Per 100 WBC 0 /100 WBCS (0.0-0.0); Neutrophils # (A) 6.86 X 10*3/uL (1.80-7.70); Platelet Count 256 X 10*3/uL (140-440); RBC 4.38 X 10*6/uL (4.10-5.20); RDW 13.4 % (11.5-14.5); WBC 9.54 X 10*3/uL (4.50-10.00)
== END | disposition home or self-care (01) ==
LOC: LABPAT 07:15
PROVIDERS: ATTEND Obstetrics & Gynecology Obstetrics
DX: Z01.812 Encounter for preprocedural laboratory examination (principal); R93.89 Abnormal findings on diagnostic imaging of other specified body structures
CPT/HCPCS: 36415; 85025

== ENCOUNTER 2022-08-31 06:49 | Day surgery (SDC) | payer MEDICARE ==
[2022-08-27 10:48] VITALS: BMI 20.2
[~2022-08-31 06:49] MED LIST changes: +Pre Op ABX Message 1 EACH MISC MISCELLANE ONE; -SODIUM CHLORIDE 0.9% 500 ML 500 ML in EMPTY BAG 1 BAG IV PRN; -ZOLEDRONIC ACID 5 MG in SODIUM CHLORIDE 0.9% 100 ML IV NR
[2022-08-31] MEDS ORDERED: LACTATED RINGERS 1,000 ML IV SCH (07:16)
[2022-08-31] MEDS ORDERED: HYDROmorphone 0.5 MG/0.5 ML SYRINGE IVP PRN (07:16)
[2022-08-31] MEDS ORDERED: LIDOCAINE 1% (10MG/ML) FOR IV START INTRADERMA PRN (07:16)
[2022-08-31] MEDS ORDERED: DEXAMETHASONE SOD PHOSPHATE 4 MG/ML 1 ML VIAL IV ONE (07:16)
[2022-08-31] MEDS ORDERED: ONDANSETRON 4 MG/2 ML VIAL IVP ONE (07:16)
[2022-08-31 07:38] LABS: Glucose,Whole Blood 116 mg/dL (70-110)
[2022-08-31] MEDS ORDERED: LIDOCAINE 2% INJ 20 MG/ML (2 ML VIAL) ONE (08:32)
[2022-08-31] MEDS ORDERED: fentaNYL (PF) 50 MCG/ML 50 ML VIAL ONE (08:32)
[2022-08-31] MEDS ORDERED: KETOROLAC 30 MG/ML 1 ML VIAL ONE (08:32)
[2022-08-31] MEDS ORDERED: PROPOFOL 10 MG/ML 20 ML VIAL IV ONE (08:32)
[2022-08-31 09:20] VITALS: TEMP 97.3
--- NOTE | 2022-08-31 09:20 | P.OP ---
Date of Procedure: 08/31/22 Preoperative Diagnosis: Thickened endometrium Postoperative Diagnosis: Same Procedure(s) Performed: Hysteroscopy, dilation and curettage Anesthesia: MAC Surgeon: Elicia Osorio Estimated Blood Loss (ml): 2 IV fluids (ml): 250 Urine output (ml): 100 Pathology: other (Endometrial curettings) Condition: stable Disposition: PACU Indications for Procedure: Thickened endometrium ultrasound, attempted endometrial biopsy 2 in the office given multiple medical problems, minimal tissue was obtained despite the ability to access the endometrial cavity without difficulty. Patient elects hysteroscopy D&C for evaluation of the endometrial cavity. Operative Findings: Site polyp within the endometrial cavity, endometrial lining appears normal and atrophic consistent with age Description of Procedure: Patient was taken back to the operating suite where general anesthesia was obtained without difficulty by the anesthesia department. She was prepped and draped in normal sterile fashion in the dorsal lithotomy position. A red rubber catheter was used to drain the bladder of clear yellow urine. A weighted speculum was placed the posterior vaginal vault the anterior lip the cervix is visualized. The anterior lip of the cervix was grasped the CO2 tenaculum. The endocervical canal was then serially dilated. The hysteroscope was placed through the cervix and the above noted findings were visualized. Sharp curettage was performed. The polyp was unable to be removed with sharp curet therefore the hysteroscope was placed back into the endometrial cavity it was noted to be free-floating hysteroscope was removed and a polyp forceps was placed into the endometrial cavity the polyp was grasped and removed without difficulty. At this time all instruments removed from the patient's vaginal vault. Hemostasis was appreciated on the anterior lip of the cervix. All counts were noted be correct 2. Patient tolerated procedure well and was taken recovery room awake in stable condition.
[2022-08-31 10:07] VITALS: RESP 20
[2022-08-31 10:22] VITALS: BP 150/66; PULSE 58
== END 2022-08-31 10:46 | disposition home or self-care (01) ==
LOC: OR 06:49
PROVIDERS: ATTEND Obstetrics & Gynecology Obstetrics
DX: N84.0 Polyp of corpus uteri (principal); R93.89 Abnormal findings on diagnostic imaging of other specified body structures; Z88.5 Allergy status to narcotic agent; N83.209 Unspecified ovarian cyst, unspecified side; I10 Essential (primary) hypertension; E78.5 Hyperlipidemia, unspecified; M19.90 Unspecified osteoarthritis, unspecified site; Z79.890 Hormone replacement therapy; Z79.899 Other long term (current) drug therapy
CPT/HCPCS: 58558; 88305; J1100; J3010; J2405; J1885; J2704; J2001

== ENCOUNTER → 2022-09-25 | Outpatient (CLI) | payer MEDICARE ==
[~2022-09-25] MED LIST changes: -Pre Op ABX Message 1 EACH MISC MISCELLANE ONE; +SODIUM CHLORIDE 0.9% 500 ML 500 ML in EMPTY BAG 1 BAG IV PRN; +ZOLEDRONIC ACID 5 MG in SODIUM CHLORIDE 0.9% 100 ML IV NR
[2022-09-25 09:34] VITALS: BP 134/75; PULSE 71; RESP 15; TEMP 97.8
== END | disposition home or self-care (01) ==
LOC: PROCWHC3 09:17
PROVIDERS: ATTEND Family Medicine
DX: M81.0 Age-related osteoporosis without current pathological fracture (principal)
CPT/HCPCS: 96365; J3489

== ENCOUNTER → 2023-03-15 | Outpatient (CLI) | payer MEDICARE ==
--- NOTE | 2023-03-15 16:33 | MR ---
EXAMINATION TYPE: MR shoulder LT wo con DATE OF EXAM: 03/15/2023 COMPARISON: None. HISTORY: Pain in left shoulder x 2 months TECHNIQUE: Multiplanar, multisequence imaging of the left shoulder is performed without contrast. FINDINGS: Rotator Cuff: Complete full-thickness retracted tear of supraspinatus tendon with some protraction to level of the acromioclavicular joint. Some increased signal and surrounding fluid in the infraspinat us tendon and subscapularis tendon. Mild to moderate muscular atrophy of the supraspinatus muscle bul k. Acromioclavicular Joint: Moderate to severe spurring and narrowing. Distal acromion morphology unrema rkable. Glenohumeral Joint: High riding humeral head is present. Large joint effusion. Narrowing along superi or aspect without significant spurring. Labrum: The superior labrum is blunted consistent with tear. Biceps Tendon: The long head of biceps is not identified and normal location within bicipital groove. Attachment at the labral anchor not seen. It is suspected likely torn and dislocated. Bone marrow signal: No focal abnormal marrow signal is appreciated. Other: No additional significant abnormality is appreciated. IMPRESSION: 1. Full-thickness retracted tear of the supraspinatus with high riding humeral head suggesting underl cisco instability. Mild to moderate muscular atrophy. Large glenohumeral joint effusion is noted. 2. Superior labral tear with likely tear and dislocation of the long head of biceps tendon.
== END | disposition home or self-care (01) ==
LOC: RADMRIMAIN 15:11
PROVIDERS: ATTEND Family Medicine
DX: M75.112 Incomplete rotator cuff tear or rupture of left shoulder, not specified as traumatic (principal); M62.50 Muscle wasting and atrophy, not elsewhere classified, unspecified site; M25.412 Effusion, left shoulder

== ENCOUNTER → 2023-09-27 | Outpatient (CLI) | payer MEDICARE ==
[2023-09-27 13:15] VITALS: BP 158/72; PULSE 63; RESP 16; TEMP 97.6
== END ==
LOC: PROCWHC3 12:51
PROVIDERS: ATTEND Family Medicine
DX: M81.0 Age-related osteoporosis without current pathological fracture (principal)
CPT/HCPCS: 96365; J3489

== ENCOUNTER → 2024-01-24 | Outpatient (CLI) | payer MEDICARE ==
--- NOTE | 2024-01-24 21:31 | US ---
EXAMINATION TYPE: US transvaginal DATE OF EXAM: 01/24/2024 COMPARISON: NONE CLINICAL INDICATION: Female, 88 years old with history of N83.201 UNSPECIFIED OVARIAN CYST, RIGHT ALLY E; history of right ovarian cyst TECHNIQUE: Transvaginal (TV). Date of LMP: unknown EXAM MEASUREMENTS: Uterus: 5.8 x 1.9 x 4.1 cm Endometrial Stripe: 0.4 cm Right Ovary: 5.3 x 3.6 x 4.0 cm Left Ovary: unable to visualize 1. Uterus: Anteverted heterogenous 2. Endometrium: appears wnl as visualized 3. Right Ovary: Simple appearing cystic area = 5.3 x 4.0 x 3.6cm there is good through transmission and posterior wall enhancement. Borders appear smooth. Cyst within the patient in this age however is abnormal. Correlation with CEA 125 blood test is recommended to evaluate for ovarian cancer. 4. Left Ovary: Obscured by overlying bowel gas 5. Bilateral Adnexa: wnl 6. Posterior cul-de-sac: wnl IMPRESSION: 1. Prominent right ovarian cyst. Follow-up and correlation with laboratory results is recommended
== END | disposition home or self-care (01) ==
LOC: RADUSWWP 15:18
PROVIDERS: ATTEND Family Medicine
DX: N83.201 Unspecified ovarian cyst, right side (principal)
CPT/HCPCS: 76830

== ENCOUNTER → 2024-06-16 | Outpatient (CLI) | payer MEDICARE ==
--- NOTE | 2024-06-16 20:19 | BD ---
EXAMINATION TYPE: Axial Bone Density DATE OF EXAM: 06/16/2024 CLINICAL HISTORY: 89 years old Female. ICD-10 CODE: M89.9 DISORDER OF BONE, UNSPECIFIED Height: 59 Weight: 107.9 FRAX RISK QUESTIONS: Alcohol (3 or more units per day): no Family History (Parent hip fracture): no Glucocorticoids (More than 3mos): no (Ex: prednisone, prednisolone, methylprednisolone, dexamethasone, and hydrocortisone). History of Fracture in Adulthood: yes Secondary Osteoporosis: 1. Type 1 Diabetes: no 2. Hyperthyroidism: no 3. Menopause before 45: no 4. Malnutrition: no 5. Chronic liver disease: no Rheumatoid Arthritis: no Current Tobacco Use: no RISK FACTORS HISTORY OF: Hip Fracture (Right/Left): no Spine Fracture: no History of Wrist Fracture: no Surgery to Spine/Hip(right/left)/Wrist (right/left): no MEDICATIONS: Thyroid Medications: yes Which medication: ? How Long: past 50 plus years Osteoporosis Medications: Reclast Which medication: once yearly How Long: past 15 years EXAM MEASUREMENTS: Bone mineral densitometry was performed using the [employer]. Bone mineral density as measured about the Lumbar spine is: ----- L1-L4(G/cm2): 1.149 T Score Values are as follows: ----- L1: -2.3 ----- L2: -0.1 ----- L3: 0.6 ----- L4: 0.0 ----- L1-L4: -0.3 Z Score Values are as follows: ----- L1: 0.2 ----- L2: 2.4 ----- L3: 3.1 ----- L4: 2.6 ----- L1-L4: 2.2 Bone mineral density has: increased 0.6 % since study of: 12/10/2021 Bone mineral density about the R hip (g/cm2): 0.787 Bone mineral density about the L hip (g/cm2): 0.796 T Score values are as follows: -----R Neck: -0.5 -----L Neck: -0.5 -----R Total: -1.7 -----L Total: -1.7 Z Score values are as follows: -----R Neck: 2.4 -----L Neck: 1.4 -----R Total: 1.1 -----L Total: 1.1 Bone mineral density has: DECREASED -0.5 % since study of: 12/10/2021 FRAX%s: The graph provided illustrates a 15.7 % chance for a major osteoporotic fx and a 4.3% chance for the hips probability for fx in 10 years time. IMPRESSION: Osteopenia (T Score between -2.5 and -1). There is slightly increased risk of fracture and the patient may be considered for treatment. Re-Screen 2-5 years. NOTE: T-SCORE=SD OF THE YOUNG ADULT MEAN.
== END | disposition home or self-care (01) ==
LOC: RADBDWWP 12:34
PROVIDERS: ATTEND Family Medicine
DX: M85.89 Other specified disorders of bone density and structure, multiple sites (principal)
CPT/HCPCS: 77080